=== PATIENT | female | born 1960 | race Caucasian/White ===

== ENCOUNTER 2016-07-04 19:26 | Emergency (ER) | payer BC, OTHER ==
[2016-07-04] MEDS ORDERED: hydrALAZINE INJ 20 MG/ML VIAL As Ordered ONE (20:33)
[2016-07-04 20:48] LABS: BASO # 0.1 K/mm3 (0.0-0.2); BASO % 0.7 % (0.0-1.0); EOS # 0.2 K/mm3 (0.0-0.50); EOS % 2.9 % (0.0-3.0); LARGE UNSTAINED CELL # 0.2 K/mm3 (0.0-0.4); LYMPH # 2.6 K/mm3 (1.5-4.5); LYMPH % 31.2 % (24.0-44.0); MEAN CORPUSCULAR HEMOGLOBIN 30.9 pg (27.0-33.0); MEAN CORPUSCULAR HGB CONC 32.8 g/dl (32.0-36.5); MEAN CORPUSCULAR VOLUME 94.4 fl (80.0-96.0); MONO # 0.4 K/mm3 (0.0-0.8); MONO % 5.3 % (0.0-5.0); NEUTROPHILS # 4.6 K/mm3 (1.8-7.7); NEUTROPHILS % 57.9 % (36.0-66.0); PLATELET COUNT, AUTOMATED 233 k/mm3 (150-450); RED CELL DISTRIBUTION WIDTH 12.7 % (11.5-14.5)
[2016-07-04 21:03] LABS: ANION GAP 9 MEQ/L (8-16); BLOOD UREA NITROGEN 20 MG/DL (7-18); CALCIUM LEVEL 9.9 MG/DL (8.5-10.1); CARBON DIOXIDE LEVEL 26 MEQ/L (21-32); CHLORIDE LEVEL 109 MEQ/L (98-107); CREATININE FOR GFR 1.01 MG/DL (0.55-1.02); GLOMERULAR FILTRATION RATE 59.9 (>51); GLUCOSE, FASTING 126 MG/DL (70-105); POTASSIUM SERUM 4.3 MEQ/L (3.5-5.1); SODIUM LEVEL 144 MEQ/L (136-145)
--- NOTE | 2016-07-04 22:12 | EDDOCDS ---
Physician Documentation [facility] Name: Tammy Hess Age: 56 yrs Sex: Female : 1960 Arrival Date: 07/04/2016 Time: 19:26 Bed 15 Private MD: Timi Disposition: 07/04 21:56 Critical Care: Critical care not applicable. le Disposition: 07/04/16 21:55 Discharged to Home/Self Care. Impression: Elevated blood-pressure reading, without diagnosis of hypertension. - Condition is Stable. - Discharge Instructions: Hypertension, Heart Disease Prevention, How to Take Your Blood Pressure, Erms-gi-Zerl, DASH Eating Plan, Managing Your High Blood Pressure. - Medication Reconciliation, Local Pharmacy Hours form. - Follow up: Timi; When: Call to arrange an appointment; Reason: Recheck today's complaints, Continuance of care. - Problem is new. - Symptoms have improved. - Notes: Return to the ED for worsening blood pressure, especially if you are experiencing any chest pain, shortness of breath, headache, decreased urine output, dizziness, feinting episodes or you have any other concerns Historical: - Allergies: SULFA (SULFONAMIDES); Erythromycin; - Home Meds: 1. none - PMHx: cysts in kidneys; - PSHx: Tonsillectomy; ; Bilateral kidney operations; Rotator Cuff Repair- Right; - Social history: Smoking status: Patient states was never smoker of tobacco. No barriers to communication noted, The patient speaks fluent Pakistani. - Family history: Not pertinent. - : The pt / caregiver states he / she is not on anticoagulants. Home medication list is obtained from the patient. - Exposure Risk Screening:: None identified. Vital Signs: 19:28 BP 228 / 116 RA Sitting (auto/lg); Pulse 84; Resp 16; Temp 97.4(O); Pulse Ox 100% on rs6 R/A; Weight 90.72 kg / 200 lbs (R); Height 5 ft. 5 in. (165.10 cm) (R); Pain 0/10; 19:50 BP 214 / 100 (auto/); mgs 19:52 Pulse 96 MON; mgs 20:02 BP 190 / 100 (man/); mgs 20:20 BP 195 / 95 (auto/); mgs 20:21 Pulse 82 MON; mgs 20:49 BP 178 / 84 (auto/); mgs 20:49 Pulse 82 MON; mgs 21:08 BP 169 / 81 (auto/); mgs 21:09 Pulse 90 MON; mgs 21:23 Pulse 80 MON; mlc 21:23 BP 180 / 87 (auto/); mlc 21:38 Pulse 88 MON; mlc 21:38 BP 188 / 91 (auto/); mlc 21:42 Pulse 92 MON; mlc 21:42 BP 170 / 82 (auto/); mlc 21:53 Pulse 86 MON; mlc 21:53 BP 166 / 84 (auto/); mlc 22:09 BP 164 / 83; Pulse 82; Resp 18; Temp 97.4; Pain 0/10; mlc 19:28 Body Mass Index 33.28 (90.72 kg, 165.10 cm) rs6 MDM: 20:11 IV Saline Lock ordered. le 20:11 hydrALAZINE 10 mg IV at bolus once ordered. le 20:12 Chest, 2 View (pa\E\lat) Ordered. EDMS 20:12 CBC with Diff Ordered. EDMS 20:12 BMP Ordered. EDMS 20:12 UA Ordered. EDMS 20:12 CIP Ordered. EDMS 20:12 Troponin Ordered. EDMS 20:12 ECG WITH READING ER PHYS+CARDIAG ordered. EDMS 20:35 [facility] Payment Agreement was scanned into [employer] and attached to record. jp5 20:35 Financial registration complete. jp5 21:47 CBC with Diff Reviewed. le 21:47 BMP Reviewed. le 21:47 UA Reviewed. le 21:47 CIP Reviewed. le 21:47 Troponin Reviewed. le Administered Medications: 20:47 Drug: hydrALAZINE 10 mg [hydralazine 20 mg/mL injection solution] Route: IV; Rate: mgs bolus; Site: right antecubital; Signatures: Dispatcher MedHost EDMS Kaur Wren FNP FNP le Booth, Mandy, RN RN mlc Smith, Mallory, RN RN ms18 Juice Aviles jp5 Bertrand Aranda RN mgs The chart was reviewed and I authenticate all verbal orders and agree with the evaluation and treatment provided.Attachments: 20:35 [facility] Payment Agreement [facility] MTDD
--- NOTE | 2016-07-04 22:12 | EDDOCDS ---
Nurse's Notes [facility] Name: Tammy Hess Age: 56 yrs Sex: Female : 1960 Arrival Date: 07/04/2016 Time: 19:26 Bed 15 Private MD: Timi Diagnosis: Elevated blood-pressure reading, without diagnosis of hypertension Presentation: 07/04 19:32 Presenting complaint: Patient states: high blood pressure today. Pt denies pain at this ms18 time. Adult Sepsis Screening: The patient does not have new or worsening altered mentation. Patient's respiratory rate is less than 22. Systolic blood pressure is greater than 100. Patient has a qSOFA score of 0- Negative Sepsis Screen. Suicide/Homicide risk assessment- the patient denies having any suicidal and/or homicidal ideations and does not present with any other emotional, behavioral or mental health complaints. Status: Patient is not a insurance service representative or dependent. Transition of care: patient was not received from another setting of care. 19:32 Acuity: MARI Level 3 ms18 19:32 Method Of Arrival: Walkin/Carried/Asstd ms18 Triage Assessment: 19:35 General: Appears in no apparent distress, comfortable, Behavior is appropriate for age, ms18 cooperative. Pain: Denies pain. HIV screening NA for this visit Offered previously. Neurological: Level of Consciousness is awake, alert, obeys commands, Oriented to person, place, time. Cardiovascular: Chest pain is denied. Respiratory: Airway is patent Respiratory effort is even, unlabored. Derm: Skin is pink, warm & dry. Historical: - Allergies: SULFA (SULFONAMIDES); Erythromycin; - Home Meds: 1. none - PMHx: cysts in kidneys; - PSHx: Tonsillectomy; ; Bilateral kidney operations; Rotator Cuff Repair- Right; - Social history: Smoking status: Patient states was never smoker of tobacco. No barriers to communication noted, The patient speaks fluent Kenyan. - Family history: Not pertinent. - : The pt / caregiver states he / she is not on anticoagulants. Home medication list is obtained from the patient. - Exposure Risk Screening:: None identified. Screenin:56 Screening information is obtained from the patient. Fall risk: No risks identified. mgs Assistance ADL's: requires no assistance with activities of daily living. Abuse/DV Screen: The patient / caregiver reports he/she is: not in a situation that causes fear, pain or injury. Nutritional screening: No deficits noted. Advance Directives: Currently, there is no health care proxy. There is no active DNR order. home support is adequate. Assessment: 19:54 Adult Sepsis Screening: The patient does not have new or worsening altered mentation. mgs Patient's respiratory rate is less than 22. Systolic blood pressure is greater than 100. Patient has a qSOFA score of 0- Negative Sepsis Screen. General: Appears in no apparent distress, Behavior is appropriate for age, cooperative. Pain: Denies pain. Neurological: Level of Consciousness is awake, alert, Oriented to person, place, time. Cardiovascular: Capillary refill < 3 seconds Heart tones S1 S2 present Pulses are 2+ in right radial artery and left radial artery. Respiratory: Airway is patent Respiratory effort is even, unlabored, Respiratory pattern is regular, symmetrical, Breath sounds are clear bilaterally. Derm: Skin is pink, warm & dry. 21:16 General: Appears in no apparent distress, Behavior is appropriate for age, cooperative. mgs Pain: Denies pain. Neurological: Level of Consciousness is awake, alert, Oriented to person, place, time. Cardiovascular: Capillary refill < 3 seconds Heart tones S1 S2 present. Respiratory: Airway is patent Respiratory effort is even, unlabored, Respiratory pattern is regular, symmetrical. Derm: Skin is pink, warm & dry. 22:09 General: Appears in no apparent distress, comfortable, Behavior is cooperative. Pain: mlc Denies pain. Neurological: Level of Consciousness is awake, alert, Oriented to person, place, time. Respiratory: Airway is patent Respiratory effort is even, unlabored, Respiratory pattern is regular. Derm: Skin is pink, warm & dry. Vital Signs: 19:28 BP 228 / 116 RA Sitting (auto/lg); Pulse 84; Resp 16; Temp 97.4(O); Pulse Ox 100% on rs6 R/A; Weight 90.72 kg (R); Height 5 ft. 5 in. (165.10 cm) (R); Pain 0/10; 19:50 BP 214 / 100 (auto/); mgs 19:52 Pulse 96 MON; mgs 20:02 BP 190 / 100 (man/); mgs 20:20 BP 195 / 95 (auto/); mgs 20:21 Pulse 82 MON; mgs 20:49 BP 178 / 84 (auto/); mgs 20:49 Pulse 82 MON; mgs 21:08 BP 169 / 81 (auto/); mgs 21:09 Pulse 90 MON; mgs 21:23 Pulse 80 MON; mlc 21:23 BP 180 / 87 (auto/); mlc 21:38 Pulse 88 MON; mlc 21:38 BP 188 / 91 (auto/); mlc 21:42 Pulse 92 MON; mlc 21:42 BP 170 / 82 (auto/); mlc 21:53 Pulse 86 MON; mlc 21:53 BP 166 / 84 (auto/); mlc 22:09 BP 164 / 83; Pulse 82; Resp 18; Temp 97.4; Pain 0/10; mlc 19:28 Body Mass Index 33.28 (90.72 kg, 165.10 cm) [facility] Vitals: 19:28 Log In Time: July 04, 2016 at 19:28. rs6 19:29 RN notified that patient meets Red Flag criteria. rs6 ED Course: 19:27 Patient visited by Yaneli Gonzalez PCA. rs6 19:27 Timi is Private Physician. rs6 19:27 Patient moved to Waiting rs6 19:28 Patient visited by Yaneli Gonzalez PCA. rs6 19:29 Patient moved to Pre RCE rs6 19:33 Triage Initiated ms18 19:35 Sinai Pack,RN is Primary Nurse. ttb 19:35 Patient moved to 15 ttb 19:41 [facility] le 19:55 Patient visited by Kaur Wren FNP. le 19:55 Patient visited by Kaur Wren FNP. le 19:58 Patient visited by Bertrand Aranda,ELIN. mgs 20:23 EKG done. (by ED staff). Reviewed by Kaur SANCHEZ. cln 20:24 Patient visited by Funmi Lopez PCA. cln 20:31 Inserted saline lock: 20 gauge in right antecubital area and blood collected. The [facility] patient tolerated the procedure well. 20:31 Missed attempts: 20 gauge X 1 in left antecubital area. mgs 20:31 Troponin Sent. mgs 20:31 CIP Sent. mgs 20:31 BMP Sent. mgs 20:31 CBC with Diff Sent. mgs 20:35 [facility] Payment Agreement was scanned into [employer] and attached to record. jp5 20:55 Patient name changed from Tammy\S\K\S\Deshawn\S\ to Tammy\S\Lata\S\Normal. EDMS 21:17 Patient visited by Bertrand Aranda RN. mgs 21:21 UA Sent. mgs 21:55 Timi is Referral Physician. le 22:09 The patient / caregiver is instructed regarding the plan of care and ED course. mlc 22:09 Discontinued IV lock intact, bleeding controlled, pressure dressing applied, No mlc redness/swelling at site. 22:10 No procedures done that require assistance. mlc Administered Medications: 20:47 Drug: hydrALAZINE 10 mg [hydralazine 20 mg/mL injection solution] Route: IV; Rate: mgs bolus; Site: right antecubital; Order Results: Lab Order: CBC with Diff; SPEC'M 07/04/16 20:28 Test: WHITE BLOOD COUNT; Value: 8.0; Range: 4.0-10.0; Units: K/mm3; Status: F Test: RED BLOOD COUNT; Value: 4.04; Range: 4.00-5.40; Units: M/mm3; Status: F Test: HEMOGLOBIN; Value: 12.5; Range: 12.0-16.0; Units: g/dl; Status: F Test: HEMATOCRIT; Value: 38.1; Range: 36.0-47.0; Units: %; Status: F Test: MEAN CORPUSCULAR VOLUME; Value: 94.4; Range: 80.0-96.0; Units: fl; Status: F Test: MEAN CORPUSCULAR HEMOGLOBIN; Value: 30.9; Range: 27.0-33.0; Units: pg; Status: F Test: MEAN CORPUSCULAR HGB CONC; Value: 32.8; Range: 32.0-36.5; Units: g/dl; Status: F Test: RED CELL DISTRIBUTION WIDTH; Value: 12.7; Range: 11.5-14.5; Units: %; Status: F Test: PLATELET COUNT, AUTOMATED; Value: 233; Range: 150-450; Units: k/mm3; Status: F Test: NEUTROPHILS %; Value: 57.9; Range: 36.0-66.0; Units: %; Status: F Test: LYMPH %; Value: 31.2; Range: 24.0-44.0; Units: %; Status: F Test: MONO %; Value: 5.3; Range: 0.0-5.0; Abnormal: Above high normal; Units: %; Status: F Test: EOS %; Value: 2.9; Range: 0.0-3.0; Units: %; Status: F Test: BASO %; Value: 0.7; Range: 0.0-1.0; Units: %; Status: F Test: LARGE UNSTAINED CELL %; Value: 2.0; Range: 0.0-4.0; Units: %; Status: F Test: NEUTROPHILS #; Value: 4.6; Range: 1.8-7.7; Units: K/mm3; Status: F Test: LYMPH #; Value: 2.6; Range: 1.5-4.5; Units: K/mm3; Status: F Test: MONO #; Value: 0.4; Range: 0.0-0.8; Units: K/mm3; Status: F Test: EOS #; Value: 0.2; Range: 0.0-0.50; Units: K/mm3; Status: F Test: BASO #; Value: 0.1; Range: 0.0-0.2; Units: K/mm3; Status: F Test: LARGE UNSTAINED CELL #; Value: 0.2; Range: 0.0-0.4; Units: K/mm3; Status: F Lab Order: [facility]; SPEC'M 07/04/16 20:28 Test: GLUCOSE, FASTING; Value: 126; Range: 70-105; Abnormal: Above high normal; Units: MG/DL; Status: F Test: BLOOD UREA NITROGEN; Value: 20; Range: 7-18; Abnormal: Above high normal; Units: MG/DL; Status: F Test: CREATININE FOR GFR; Value: 1.01; Range: 0.55-1.02; Units: MG/DL; Status: F Test: GLOMERULAR FILTRATION RATE; Value: 59.9; Range: >51; Status: F Test: SODIUM LEVEL; Value: 144; Range: 136-145; Units: MEQ/L; Status: F Test: POTASSIUM SERUM; Value: 4.3; Range: 3.5-5.1; Units: MEQ/L; Status: F Test: CHLORIDE LEVEL; Value: 109; Range: 98-107; Abnormal: Above high normal; Units: MEQ/L; Status: F Test: CARBON DIOXIDE LEVEL; Value: 26; Range: 21-32; Units: MEQ/L; Status: F Test: ANION GAP; Value: 9; Range: 8-16; Units: MEQ/L; Status: F Test: CALCIUM LEVEL; Value: 9.9; Range: 8.5-10.1; Units: MG/DL; Status: F Test Note: ; Units are mL/min/1.73 m2 Chronic Kidney Disease Staging per NKF: Stage I & II GFR >=60 Normal to Mildly Decreased Stage III GFR 30-59 Moderately Decreased Stage IV GFR 15-29 Severely Decreased Stage V GFR <15 Very Little GFR Left ESRD GFR <15 on GOLF COURSE ASSISTANT Lab Order: UA; SPEC'M 07/04/16 21:20 Test: APPEARANCE, URINE; Value: CLEAR; Range: CLEAR; Status: F Test: COLOR, URINE; Value: STRAW; Range: YELLOW; Status: F Test: PH,URINE; Value: 6.0; Range: 5.0-9.0; Units: UNITS; Status: F Test: SPECIFIC GRAVITY URINE AUTO; Value: 1.004; Range: 1.002-1.035; Status: F Test: PROTEIN, URINE AUTO; Value: NEGATIVE; Range: NEGATIVE; Units: mg/dL; Status: F Test: GLUCOSE, URINE (UA) AUTO; Value: NEGATIVE; Range: NEGATIVE; Units: mg/dL; Status: F Test: KETONE, URINE AUTO; Value: NEGATIVE; Range: NEGATIVE; Units: mg/dL; Status: F Test: UROBILINOGEN, URINE AUTO; Value: 0.2; Range: 0.0-2.0; Units: mg/dL; Status: F Test: BILIRUBIN, URINE AUTO; Value: NEGATIVE; Range: NEGATIVE; Status: F Test: NITRITE, URINE AUTO; Value: NEGATIVE; Range: NEGATIVE; Status: F Test: LEUKOCYTE ESTERASE, URINE AUTO; Value: 1+; Range: NEGATIVE; Abnormal: Above high normal; Status: F Test: BLOOD, URINE BLOOD; Value: NEGATIVE; Range: NEGATIVE; Status: F Test: WBC, URINE AUTO; Value: 8; Range: 0-3; Abnormal: Above high normal; Units: /HPF; Status: F Test: RBC, URINE AUTO; Value: 1; Range: 0-3; Units: /HPF; Status: F Test: BACTERIA, URINE AUTO; Value: 2+; Range: NEGATIVE; Abnormal: Above high normal; Status: F Test: SQUAMOUS EPITHELIAL CELL UR AU; Value: 0; Range: 0-6; Units: /HPF; Status: F Test: MUCUS, URINE; Value: SMALL; Range: NEGATIVE; Status: F Test: HYALINE CAST, URINE AUTO; Value: 0; Range: 0-1; Units: /LPF; Status: F Lab Order: CIP; [facility] 07/04/16 20:28 Test: CPK CREATINE PHOSPHOKINASE; Value: 80; Range: 26-192; Units: U/L; Status: F Test: CK-MB VALUE MASS; Value: 1.4; Range: 0.0-3.6; Units: NG/ML; Status: F Test: MB/CK RELATIVE INDEX; Value: 1.75; Range: < OR =4; Status: F Test Note: ; DIAGNOSIS CRITERIA MMB ng/ml Relative Index (RI) NON-AMI < or = 5 N/A STEPHEN ZONE > 5 < or = 4 AMI > 5 > 4 Lab Order: Troponin; [facility] 07/04/16 20:28 Test: TROPONIN I; Value: < 0.02; Range: < 0.10; Units: NG/ML; Status: F Test Note: ; Troponin I Reference Interval for Ingeniatrics LOCI: 99th Percentile= 0.00-0.045 ng/ml Risk Stratification: <= 0.10 ng/ml Decreased Risk for Adverse Clinical Events. 0.10-1.50 ng/ml Increased Risk for Adverse Clinical Events. Evaluation of additional criterion and/or repeat testing in 2-6 hours is suggested to rule out myocardial damage. >= 1.50 ng/ml Indicative of Myocardial Injury. Outcome: 21:55 Discharge ordered by Provider. le 22:09 Discharge Assessment: Patient awake, alert and oriented x 3. No cognitive and/or mlc functional deficits noted. Patient verbalized understanding of disposition instructions. patient administered narcotics - no. The following High Risk Discharge criteria are identified: None. Discharged to home ambulatory, with family. Condition: stable Condition: improved. Discharge instructions given to patient, Instructed on discharge instructions, follow up and referral plans. Demonstrated understanding of instructions, Pt was receptive of discharge instructions/ teaching. No special radiology studies were completed. Property sent home with patient. 22:11 Patient left the ED. [facility] Signatures: Dispatcher MedHost EDTX Kaur Wren FNP FNP le Conner, Teresa, RN RN ttb Lisbeth Carmen RN RN Cait Henderson RN RN ms18 Bertrand Aranda,RN RN mgs Yaneli Gonzalez, APPLICATION CONSULTANT APPLICATION CONSULTANT rs6 Juice Aviles jp5 Funmi Lopez, APPLICATION CONSULTANT APPLICATION CONSULTANT cln TACO
--- NOTE | 2016-07-05 08:19 | REP ---
Chest x-ray: Two views. History: Hypertension . Comparison study: August 31, 2015 . Findings: The lungs are well inflated and free of infiltrate. There is a tiny linear density in the left base consistent with mild linear fibrosis unchanged. The pleural angles are sharp. The heart size is normal. Pulmonary vasculature is not increased. No significant bony abnormality is seen. Impression: Mild linear fibrosis left base, otherwise negative chest x-ray. Signed by Felix Urbano MD 07/05/2016 08:10 A
--- NOTE | 2016-07-05 09:01 | ECGEPIP ---
Stationary ECG Study [facility] - ED Test Date: 2016-07-04 Pat Name: AGUSTINA WU Department: Room: - Gender: F [employer] Person: lissette : 1960 Requested By: RENA SANCHEZ Order Number: [id number] Reading MD: Maci Puente Measurements Intervals Gates Rate: 90 P: 42 AR: 178 QRS: 20 QRSD: 87 T: 12 QT: 382 QTc: 469 Interpretive Statements SINUS RHYTHM LEFT VENTRICULAR HYPERTROPHY AND ST-T CHANGE VS ISCHEMIA, INCREASED 08/31/15 Electronically Signed On 07-05-2016 9:01:29 EST by Maci Puente
--- NOTE | 2016-07-06 23:12 | EDDOCDS ---
Nurse's Notes [facility] Name: Agustina Hess Age: 56 yrs Sex: Female : 1960 Arrival Date: 07/04/2016 Time: 19:26 Bed 15 Private MD: Timi Diagnosis: Elevated blood-pressure reading, without diagnosis of hypertension Presentation: 07/04 19:32 Presenting complaint: Patient states: high blood pressure today. Pt denies pain at this ms18 time. Adult Sepsis Screening: The patient does not have new or worsening altered mentation. Patient's respiratory rate is less than 22. Systolic blood pressure is greater than 100. Patient has a qSOFA score of 0- Negative Sepsis Screen. Suicide/Homicide risk assessment- the patient denies having any suicidal and/or homicidal ideations and does not present with any other emotional, behavioral or mental health complaints. Status: Patient is not a social and human services assistant or dependent. Transition of care: patient was not received from another setting of care. 19:32 Acuity: MARI Level 3 ms18 19:32 Method Of Arrival: Walkin/Carried/Asstd ms18 Triage Assessment: 19:35 General: Appears in no apparent distress, comfortable, Behavior is appropriate for age, ms18 cooperative. Pain: Denies pain. HIV screening NA for this visit Offered previously. Neurological: Level of Consciousness is awake, alert, obeys commands, Oriented to person, place, time. Cardiovascular: Chest pain is denied. Respiratory: Airway is patent Respiratory effort is even, unlabored. Derm: Skin is pink, warm & dry. Historical: - Allergies: SULFA (SULFONAMIDES); Erythromycin; - Home Meds: 1. none - PMHx: cysts in kidneys; - PSHx: Tonsillectomy; ; Bilateral kidney operations; Rotator Cuff Repair- Right; - Social history: Smoking status: Patient states was never smoker of tobacco. No barriers to communication noted, The patient speaks fluent Tanzanian. - Family history: Not pertinent. - : The pt / caregiver states he / she is not on anticoagulants. Home medication list is obtained from the patient. - Exposure Risk Screening:: None identified. Screenin:56 Screening information is obtained from the patient. Fall risk: No risks identified. mgs Assistance ADL's: requires no assistance with activities of daily living. Abuse/DV Screen: The patient / caregiver reports he/she is: not in a situation that causes fear, pain or injury. Nutritional screening: No deficits noted. Advance Directives: Currently, there is no health care proxy. There is no active DNR order. home support is adequate. Assessment: 19:54 Adult Sepsis Screening: The patient does not have new or worsening altered mentation. mgs Patient's respiratory rate is less than 22. Systolic blood pressure is greater than 100. Patient has a qSOFA score of 0- Negative Sepsis Screen. General: Appears in no apparent distress, Behavior is appropriate for age, cooperative. Pain: Denies pain. Neurological: Level of Consciousness is awake, alert, Oriented to person, place, time. Cardiovascular: Capillary refill < 3 seconds Heart tones S1 S2 present Pulses are 2+ in right radial artery and left radial artery. Respiratory: Airway is patent Respiratory effort is even, unlabored, Respiratory pattern is regular, symmetrical, Breath sounds are clear bilaterally. Derm: Skin is pink, warm & dry. 21:16 General: Appears in no apparent distress, Behavior is appropriate for age, cooperative. mgs Pain: Denies pain. Neurological: Level of Consciousness is awake, alert, Oriented to person, place, time. Cardiovascular: Capillary refill < 3 seconds Heart tones S1 S2 present. Respiratory: Airway is patent Respiratory effort is even, unlabored, Respiratory pattern is regular, symmetrical. Derm: Skin is pink, warm & dry. 22:09 General: Appears in no apparent distress, comfortable, Behavior is cooperative. Pain: mlc Denies pain. Neurological: Level of Consciousness is awake, alert, Oriented to person, place, time. Respiratory: Airway is patent Respiratory effort is even, unlabored, Respiratory pattern is regular. Derm: Skin is pink, warm & dry. Vital Signs: 19:28 BP 228 / 116 RA Sitting (auto/lg); Pulse 84; Resp 16; Temp 97.4(O); Pulse Ox 100% on rs6 R/A; Weight 90.72 kg (R); Height 5 ft. 5 in. (165.10 cm) (R); Pain 0/10; 19:50 BP 214 / 100 (auto/); mgs 19:52 Pulse 96 MON; mgs 20:02 BP 190 / 100 (man/); mgs 20:20 BP 195 / 95 (auto/); mgs 20:21 Pulse 82 MON; mgs 20:49 BP 178 / 84 (auto/); mgs 20:49 Pulse 82 MON; mgs 21:08 BP 169 / 81 (auto/); mgs 21:09 Pulse 90 MON; mgs 21:23 Pulse 80 MON; mlc 21:23 BP 180 / 87 (auto/); mlc 21:38 Pulse 88 MON; mlc 21:38 BP 188 / 91 (auto/); mlc 21:42 Pulse 92 MON; mlc 21:42 BP 170 / 82 (auto/); mlc 21:53 Pulse 86 MON; mlc 21:53 BP 166 / 84 (auto/); mlc 22:09 BP 164 / 83; Pulse 82; Resp 18; Temp 97.4; Pain 0/10; mlc 19:28 Body Mass Index 33.28 (90.72 kg, 165.10 cm) [facility] Vitals: 19:28 Log In Time: July 04, 2016 at 19:28. rs6 19:29 RN notified that patient meets Red Flag criteria. rs6 ED Course: 19:27 Patient visited by Yaneli Gonzalez PCA. rs6 19:27 Timi is Private Physician. rs6 19:27 Patient moved to Waiting rs6 19:28 Patient visited by Yaneli Gonzalez PCA. rs6 19:29 Patient moved to Pre RCE rs6 19:33 Triage Initiated ms18 19:35 Sinai Pack,RN is Primary Nurse. ttb 19:35 Patient moved to 15 ttb 19:41 [facility] le 19:55 Patient visited by Kaur Wren FNP. le 19:55 Patient visited by Kaur Wren FNP. le 19:58 Patient visited by Bertrand Aradna,ELIN. mgs 20:23 EKG done. (by ED staff). Reviewed by Kaur SANCHEZ. cln 20:24 Patient visited by Funmi Lopez PCA. cln 20:31 Inserted saline lock: 20 gauge in right antecubital area and blood collected. [facility] [place] tolerated the procedure well. 20:31 Missed attempts: 20 gauge X 1 in left antecubital area. mgs 20:31 Troponin Sent. mgs 20:31 CIP Sent. mgs 20:31 BMP Sent. mgs 20:31 CBC with Diff Sent. mgs 20:35 [facility] was scanned into [employer] and attached to record. jp5 20:55 Patient name changed from Agustina\S\K\S\Deshawn\S\ to Agustina\S\Lata\S\[place]. EDMS 21:17 Patient visited by Bertrand Aranda RN. mgs 21:21 UA Sent. mgs 21:55 Timi is Referral Physician. le 22:09 The patient / caregiver is instructed regarding the plan of care and ED course. mlc 22:09 Discontinued IV lock intact, bleeding controlled, pressure dressing applied, No mlc redness/swelling at site. 22:10 No procedures done that require assistance. mlc 22:24 T-Sheet-- Draft Copy was scanned into [employer] and attached to record. klr 07/05 08:49 Chest, 2 View (pa\E\lat) Returned. EDMS 09:23 EKG-ADULT Returned. EDMS 15:26 ECG/EKG was scanned into [employer] and attached to record. kf3 Administered Medications: 07/04 20:47 Drug: hydrALAZINE 10 mg [hydralazine 20 mg/mL injection solution] Route: IV; Rate: mgs bolus; Site: right antecubital; Order Results: Lab Order: CBC with Diff; SPEC'M 07/04/16 20:28 Test: WHITE BLOOD COUNT; Value: 8.0; Range: 4.0-10.0; Units: K/mm3; Status: F Test: RED BLOOD COUNT; Value: 4.04; Range: 4.00-5.40; Units: M/mm3; Status: F Test: HEMOGLOBIN; Value: 12.5; Range: 12.0-16.0; Units: g/dl; Status: F Test: HEMATOCRIT; Value: 38.1; Range: 36.0-47.0; Units: %; Status: F Test: MEAN CORPUSCULAR VOLUME; Value: 94.4; Range: 80.0-96.0; Units: fl; Status: F Test: MEAN CORPUSCULAR HEMOGLOBIN; Value: 30.9; Range: 27.0-33.0; Units: pg; Status: F Test: MEAN CORPUSCULAR HGB CONC; Value: 32.8; Range: 32.0-36.5; Units: g/dl; Status: F Test: RED CELL DISTRIBUTION WIDTH; Value: 12.7; Range: 11.5-14.5; Units: %; Status: F Test: PLATELET COUNT, AUTOMATED; Value: 233; Range: 150-450; Units: k/mm3; Status: F Test: NEUTROPHILS %; Value: 57.9; Range: 36.0-66.0; Units: %; Status: F Test: LYMPH %; Value: 31.2; Range: 24.0-44.0; Units: %; Status: F Test: MONO %; Value: 5.3; Range: 0.0-5.0; Abnormal: Above high normal; Units: %; Status: F Test: EOS %; Value: 2.9; Range: 0.0-3.0; Units: %; Status: F Test: BASO %; Value: 0.7; Range: 0.0-1.0; Units: %; Status: F Test: LARGE UNSTAINED CELL %; Value: 2.0; Range: 0.0-4.0; Units: %; Status: F Test: NEUTROPHILS #; Value: 4.6; Range: 1.8-7.7; Units: K/mm3; Status: F Test: LYMPH #; Value: 2.6; Range: 1.5-4.5; Units: K/mm3; Status: F Test: MONO #; Value: 0.4; Range: 0.0-0.8; Units: K/mm3; Status: F Test: EOS #; Value: 0.2; Range: 0.0-0.50; Units: K/mm3; Status: F Test: BASO #; Value: 0.1; Range: 0.0-0.2; Units: K/mm3; Status: F Test: LARGE UNSTAINED CELL #; Value: 0.2; Range: 0.0-0.4; Units: K/mm3; Status: F Lab Order: [facility]; SPEC'M 07/04/16 20:28 Test: GLUCOSE, FASTING; Value: 126; Range: 70-105; Abnormal: Above high normal; Units: MG/DL; Status: F Test: BLOOD UREA NITROGEN; Value: 20; Range: 7-18; Abnormal: Above high normal; Units: MG/DL; Status: F Test: CREATININE FOR GFR; Value: 1.01; Range: 0.55-1.02; Units: MG/DL; Status: F Test: GLOMERULAR FILTRATION RATE; Value: 59.9; Range: >51; Status: F Test: SODIUM LEVEL; Value: 144; Range: 136-145; Units: MEQ/L; Status: F Test: POTASSIUM SERUM; Value: 4.3; Range: 3.5-5.1; Units: MEQ/L; Status: F Test: CHLORIDE LEVEL; Value: 109; Range: 98-107; Abnormal: Above high normal; Units: MEQ/L; Status: F Test: CARBON DIOXIDE LEVEL; Value: 26; Range: 21-32; Units: MEQ/L; Status: F Test: ANION GAP; Value: 9; Range: 8-16; Units: MEQ/L; Status: F Test: CALCIUM LEVEL; Value: 9.9; Range: 8.5-10.1; Units: MG/DL; Status: F Test Note: ; Units are mL/min/1.73 m2 Chronic Kidney Disease Staging per NKF: Stage I & II GFR >=60 Normal to Mildly Decreased Stage III GFR 30-59 Moderately Decreased Stage IV GFR 15-29 Severely Decreased Stage V GFR <15 Very Little GFR Left ESRD GFR <15 on DAIRY WORKER Lab Order: UA; SPEC'M 07/04/16 21:20 Test: APPEARANCE, URINE; Value: CLEAR; Range: CLEAR; Status: F Test: COLOR, URINE; Value: STRAW; Range: YELLOW; Status: F Test: PH,URINE; Value: 6.0; Range: 5.0-9.0; Units: UNITS; Status: F Test: SPECIFIC GRAVITY URINE AUTO; Value: 1.004; Range: 1.002-1.035; Status: F Test: PROTEIN, URINE AUTO; Value: NEGATIVE; Range: NEGATIVE; Units: mg/dL; Status: F Test: GLUCOSE, URINE (UA) AUTO; Value: NEGATIVE; Range: NEGATIVE; Units: mg/dL; Status: F Test: KETONE, URINE AUTO; Value: NEGATIVE; Range: NEGATIVE; Units: mg/dL; Status: F Test: UROBILINOGEN, URINE AUTO; Value: 0.2; Range: 0.0-2.0; Units: mg/dL; Status: F Test: BILIRUBIN, URINE AUTO; Value: NEGATIVE; Range: NEGATIVE; Status: F Test: NITRITE, URINE AUTO; Value: NEGATIVE; Range: NEGATIVE; Status: F Test: LEUKOCYTE ESTERASE, URINE AUTO; Value: 1+; Range: NEGATIVE; Abnormal: Above high normal; Status: F Test: BLOOD, URINE BLOOD; Value: NEGATIVE; Range: NEGATIVE; Status: F Test: WBC, URINE AUTO; Value: 8; Range: 0-3; Abnormal: Above high normal; Units: /HPF; Status: F Test: RBC, URINE AUTO; Value: 1; Range: 0-3; Units: /HPF; Status: F Test: BACTERIA, URINE AUTO; Value: 2+; Range: NEGATIVE; Abnormal: Above high normal; Status: F Test: SQUAMOUS EPITHELIAL CELL UR AU; Value: 0; Range: 0-6; Units: /HPF; Status: F Test: MUCUS, URINE; Value: SMALL; Range: NEGATIVE; Status: F Test: HYALINE CAST, URINE AUTO; Value: 0; Range: 0-1; Units: /LPF; Status: F Lab Order: CIP; SPEC'M 07/04/16 20:28 Test: CPK CREATINE PHOSPHOKINASE; Value: 80; Range: 26-192; Units: U/L; Status: F Test: CK-MB VALUE MASS; Value: 1.4; Range: 0.0-3.6; Units: NG/ML; Status: F Test: MB/CK RELATIVE INDEX; Value: 1.75; Range: < OR =4; Status: F Test Note: ; DIAGNOSIS CRITERIA MMB ng/ml Relative Index (RI) NON-AMI < or = 5 N/A STEPHEN ZONE > 5 < or = 4 AMI > 5 > 4 Lab Order: Troponin; SPEC'M 07/04/16 20:28 Test: TROPONIN I; Value: < 0.02; Range: < 0.10; Units: NG/ML; Status: F Test Note: ; Troponin I Reference Interval for [employer] LOCI: 99th Percentile= 0.00-0.045 ng/ml Risk Stratification: <= 0.10 ng/ml Decreased Risk for Adverse Clinical Events. 0.10-1.50 ng/ml Increased Risk for Adverse Clinical Events. Evaluation of additional criterion and/or repeat testing in 2-6 hours is suggested to rule out myocardial damage. >= 1.50 ng/ml Indicative of Myocardial Injury. Radiology Order: Chest, 2 View (pa\E\lat) Test: Chest, 2 View (pa\E\lat) REASON FOR EXAMINATION: hypertension; Chest x-ray: Two views.; ; History: Hypertension .; ; Comparison study: August 31, 2015 .; ; Findings: The lungs are well inflated and free of infiltrate. There is a tiny; linear density in the left base consistent with mild linear fibrosis unchanged.; The pleural angles are sharp. The heart size is normal. Pulmonary vasculature; is not increased. 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 le 22:09 Discharge Assessment: Patient awake, alert and oriented x 3. No cognitive and/or mlc functional deficits noted. Patient verbalized understanding of disposition instructions. patient administered narcotics - no. The following High Risk Discharge criteria are identified: None. Discharged to home ambulatory, with family. Condition: stable Condition: improved. Discharge instructions given to patient, Instructed on discharge instructions, follow up and referral plans. Demonstrated understanding of instructions, Pt was receptive of discharge instructions/ teaching. No special radiology studies were completed. Property sent home with patient. 22:11 Patient left the ED. mlc Signatures: Dispatcher [employer] EDMS Kaur Wren, LAURA MEDICAL OFFICE MANAGERKain Ingram, Reg Reg kf3 Perla Michaud, RN RN ttb Lisbeth Carmen,RN RN Cait Henderson RN RN ms18 Bertrand ArandaRN RN Yaneli Rodriguez, SECURITY INFRASTRUCTURE ENGINEER SECURITY INFRASTRUCTURE ENGINEER rs6 Juice Aviles jp5 Funmi Lopez, SECURITY INFRASTRUCTURE ENGINEER SECURITY INFRASTRUCTURE ENGINEER cln Michelle Hollis Chart Complete MTDD
--- NOTE | 2016-07-06 23:12 | EDDOCDS ---
Physician Documentation [facility] Name: Tammy Hess Age: 56 yrs Sex: Female : 1960 Arrival Date: 07/04/2016 Time: 19:26 Bed 15 Private MD: Timi Disposition: 07/04 21:56 Critical Care: Critical care not applicable. le Disposition: 07/04/16 21:55 Discharged to Home/Self Care. Impression: Elevated blood-pressure reading, without diagnosis of hypertension. - Condition is Stable. - Discharge Instructions: Hypertension, Heart Disease Prevention, How to Take Your Blood Pressure, [id number], DASH Eating Plan, Managing Your High Blood Pressure. - Medication Reconciliation, Local Pharmacy Hours form. - Follow up: Timi; When: Call to arrange an appointment; Reason: Recheck today's complaints, Continuance of care. - Problem is new. - Symptoms have improved. - Notes: Return to the ED for worsening blood pressure, especially if you are experiencing any chest pain, shortness of breath, headache, decreased urine output, dizziness, feinting episodes or you have any other concerns Historical: - Allergies: SULFA (SULFONAMIDES); Erythromycin; - Home Meds: 1. none - PMHx: cysts in kidneys; - PSHx: Tonsillectomy; ; Bilateral kidney operations; Rotator Cuff Repair- Right; - Social history: Smoking status: Patient states was never smoker of tobacco. No barriers to communication noted, The patient speaks fluent Ghanaian. - Family history: Not pertinent. - : The pt / caregiver states he / she is not on anticoagulants. Home medication list is obtained from the patient. - Exposure Risk Screening:: None identified. Vital Signs: 19:28 BP 228 / 116 RA Sitting (auto/lg); Pulse 84; Resp 16; Temp 97.4(O); Pulse Ox 100% on rs6 R/A; Weight 90.72 kg / 200 lbs (R); Height 5 ft. 5 in. (165.10 cm) (R); Pain 0/10; 19:50 BP 214 / 100 (auto/); mgs 19:52 Pulse 96 MON; mgs 20:02 BP 190 / 100 (man/); mgs 20:20 BP 195 / 95 (auto/); mgs 20:21 Pulse 82 MON; mgs 20:49 BP 178 / 84 (auto/); mgs 20:49 Pulse 82 MON; mgs 21:08 BP 169 / 81 (auto/); mgs 21:09 Pulse 90 MON; mgs 21:23 Pulse 80 MON; mlc 21:23 BP 180 / 87 (auto/); mlc 21:38 Pulse 88 MON; mlc 21:38 BP 188 / 91 (auto/); mlc 21:42 Pulse 92 MON; mlc 21:42 BP 170 / 82 (auto/); mlc 21:53 Pulse 86 MON; mlc 21:53 BP 166 / 84 (auto/); mlc 22:09 BP 164 / 83; Pulse 82; Resp 18; Temp 97.4; Pain 0/10; mlc 19:28 Body Mass Index 33.28 (90.72 kg, 165.10 cm) rs6 MDM: 20:11 IV Saline Lock ordered. le 20:11 hydrALAZINE 10 mg IV at bolus once ordered. le 20:12 Chest, 2 View (pa\E\lat) Ordered. EDMS 20:12 CBC with Diff Ordered. EDMS 20:12 BMP Ordered. EDMS 20:12 UA Ordered. EDMS 20:12 CIP Ordered. EDMS 20:12 Troponin Ordered. EDMS 20:12 ECG WITH READING ER PHYS+CARDIAG ordered. EDMS 20:35 [facility] Payment Agreement was scanned into [employer] and attached to record. jp5 20:35 Financial registration complete. jp5 21:47 CBC with Diff Reviewed. le 21:47 BMP Reviewed. le 21:47 UA Reviewed. le 21:47 CIP Reviewed. le 21:47 Troponin Reviewed. le 22:24 T-Sheet-- Draft Copy was scanned into [employer] and attached to record. klr 07/05 15:26 ECG/EKG was scanned into [employer] and attached to record. kf3 Administered Medications: 07/04 20:47 Drug: hydrALAZINE 10 mg [hydralazine 20 mg/mL injection solution] Route: IV; Rate: mgs bolus; Site: right antecubital; Signatures: Dispatcher [employer] EDMS Kaur Wren, DIRECTOR OF STATE DIRECTOR OF STATE le Kain Lopez, Reg Reg kf3 Lisbeth Carmen RN RN Cait Henderson RN RN ms18 Juice Aviles jp5 Michelle Hollis Matthew RN mgs The chart was reviewed and I authenticate all verbal orders and agree with the evaluation and treatment provided.Attachments: 20:35 [facility] Payment Agreement jp5 22:24 T-Sheet-- Draft Copy klr 07/05 15:26 ECG/EKG kf3 Chart Complete MTDD
--- NOTE | 2016-07-06 23:12 | EDDOCDS ---
Physician Documentation [facility] Name: Tammy Hess Age: 56 yrs Sex: Female : 1960 Arrival Date: 07/04/2016 Time: 19:26 Bed 15 Private MD: Timi Disposition: 07/04 21:56 Critical Care: Critical care not applicable. le Disposition: 07/04/16 21:55 Discharged to Home/Self Care. Impression: Elevated blood-pressure reading, without diagnosis of hypertension. - Condition is Stable. - Discharge Instructions: Hypertension, Heart Disease Prevention, How to Take Your Blood Pressure, [id number], DASH Eating Plan, Managing Your High Blood Pressure. - Medication Reconciliation, Local Pharmacy Hours form. - Follow up: Timi; When: Call to arrange an appointment; Reason: Recheck today's complaints, Continuance of care. - Problem is new. - Symptoms have improved. - Notes: Return to the ED for worsening blood pressure, especially if you are experiencing any chest pain, shortness of breath, headache, decreased urine output, dizziness, feinting episodes or you have any other concerns Historical: - Allergies: SULFA (SULFONAMIDES); Erythromycin; - Home Meds: 1. none - PMHx: cysts in kidneys; - PSHx: Tonsillectomy; ; Bilateral kidney operations; Rotator Cuff Repair- Right; - Social history: Smoking status: Patient states was never smoker of tobacco. No barriers to communication noted, The patient speaks fluent Anguillan. - Family history: Not pertinent. - : The pt / caregiver states he / she is not on anticoagulants. Home medication list is obtained from the patient. - Exposure Risk Screening:: None identified. Vital Signs: 19:28 BP 228 / 116 RA Sitting (auto/lg); Pulse 84; Resp 16; Temp 97.4(O); Pulse Ox 100% on rs6 R/A; Weight 90.72 kg / 200 lbs (R); Height 5 ft. 5 in. (165.10 cm) (R); Pain 0/10; 19:50 BP 214 / 100 (auto/); mgs 19:52 Pulse 96 MON; mgs 20:02 BP 190 / 100 (man/); mgs 20:20 BP 195 / 95 (auto/); mgs 20:21 Pulse 82 MON; mgs 20:49 BP 178 / 84 (auto/); mgs 20:49 Pulse 82 MON; mgs 21:08 BP 169 / 81 (auto/); mgs 21:09 Pulse 90 MON; mgs 21:23 Pulse 80 MON; mlc 21:23 BP 180 / 87 (auto/); mlc 21:38 Pulse 88 MON; mlc 21:38 BP 188 / 91 (auto/); mlc 21:42 Pulse 92 MON; mlc 21:42 BP 170 / 82 (auto/); mlc 21:53 Pulse 86 MON; mlc 21:53 BP 166 / 84 (auto/); mlc 22:09 BP 164 / 83; Pulse 82; Resp 18; Temp 97.4; Pain 0/10; mlc 19:28 Body Mass Index 33.28 (90.72 kg, 165.10 cm) rs6 MDM: 20:11 IV Saline Lock ordered. le 20:11 hydrALAZINE 10 mg IV at bolus once ordered. le 20:12 Chest, 2 View (pa\E\lat) Ordered. EDMS 20:12 CBC with Diff Ordered. EDMS 20:12 BMP Ordered. EDMS 20:12 UA Ordered. EDMS 20:12 CIP Ordered. EDMS 20:12 Troponin Ordered. EDMS 20:12 ECG WITH READING ER PHYS+CARDIAG ordered. EDMS 20:35 [facility] Payment Agreement was scanned into [employer] and attached to record. jp5 20:35 Financial registration complete. jp5 21:47 CBC with Diff Reviewed. le 21:47 BMP Reviewed. le 21:47 UA Reviewed. le 21:47 CIP Reviewed. le 21:47 Troponin Reviewed. le 22:24 T-Sheet-- Draft Copy was scanned into [employer] and attached to record. klr 07/05 15:26 ECG/EKG was scanned into [employer] and attached to record. kf3 Administered Medications: 07/04 20:47 Drug: hydrALAZINE 10 mg [hydralazine 20 mg/mL injection solution] Route: IV; Rate: mgs bolus; Site: right antecubital; Signatures: Dispatcher [employer] EDMS Kaur Wren, DISTRICT PLANT ENGINEER DISTRICT PLANT ENGINEER le Kain Lopez, Reg Reg kf3 Lisbeth Carmen RN RN Cait Henderson RN RN [id number] Juice Aviles jp5 Michelle Hollis Matthew RN mgs The chart was reviewed and I authenticate all verbal orders and agree with the evaluation and treatment provided.Attachments: 20:35 [facility] Payment Agreement jp5 22:24 T-Sheet-- Draft Copy klr 07/05 15:26 ECG/EKG kf3 Chart Complete MTDD
== END 2016-07-04 22:11 | disposition home or self-care (01) ==
LOC: M ED 19:26
DX: R03.0 Elevated blood-pressure reading, without diagnosis of hypertension (principal); N28.1 Cyst of kidney, acquired; Z88.2 Allergy status to sulfonamides; Z88.1 Allergy status to other antibiotic agents

== ENCOUNTER 2016-07-05 18:46 | Emergency (ER) | payer BC, OTHER ==
[2016-07-05] MEDS ORDERED: hydroCHLOROthiazide 12.5 MG CAPSULE As Ordered ONE (20:06)
--- NOTE | 2016-07-05 20:23 | EDDOCDS ---
Nurse's Notes [facility] Name: Tammy Hess Age: 56 yrs Sex: Female : 1960 Arrival Date: 07/05/2016 Time: 18:46 Bed TR8 Private MD: Timi Diagnosis: Elevated blood-pressure reading, without diagnosis of hypertension Presentation: 07/05 18:57 Presenting complaint: Patient states: seen here last night for elevated blood pressure, j was given IV Hydralazine, returns because is elevated again. Adult Sepsis Screening: The patient does not have new or worsening altered mentation. Patient's respiratory rate is less than 22. Systolic blood pressure is greater than 100. Patient has a qSOFA score of 0- Negative Sepsis Screen. Suicide/Homicide risk assessment- the patient denies having any suicidal and/or homicidal ideations and does not present with any other emotional, behavioral or mental health complaints. 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 Transition of care: patient was not received from another setting of care. 18:57 Acuity: MARI Level 3 [facility] 18:57 Method Of Arrival: Walkin/Carried/Asstd [facility] Triage Assessment: 19:00 General: Appears in no apparent distress, well nourished, well groomed, Behavior is [facility] appropriate for age, pleasant. Pain: Denies pain. HIV screening NA for this visit Offered previously. Neurological: Level of Consciousness is awake, alert, Oriented to person, place, time, Denies dizziness, headache. Cardiovascular: Chest pain is denied. Respiratory: Airway is patent Respiratory effort is even, unlabored, Respiratory pattern is regular, symmetrical. Derm: Skin is pink, warm & dry. Historical: - Allergies: SULFA (SULFONAMIDES) (Hives); Erythromycin (Anaphylaxis); - Home Meds: 1. none - PMHx: cysts in kidneys; Hypertension; - PSHx: Tonsillectomy; Bilateral kidney operations; ; Rotator Cuff Repair- Right; - Social history: Smoking status: Patient states former smoker of tobacco. No barriers to communication noted, The patient speaks fluent Mongolian. - Family history: Not pertinent. - : The pt / caregiver states he / she is not on anticoagulants. Home medication list is obtained from the patient. - Exposure Risk Screening:: None identified. Screenin:19 Screening information is obtained from the patient. Fall risk: No risks identified. cj Assistance ADL's: requires no assistance with activities of daily living. Abuse/DV Screen: The patient / caregiver reports he/she is: not in a situation that causes fear, pain or injury. Nutritional screening: No deficits noted. Advance Directives: There is no active DNR order. home support is adequate. Assessment: 20:19 General: Appears in no apparent distress, comfortable, Behavior is appropriate for age, cjh cooperative. General: reviewed discharge instructions with patient, encouraged and answered questions, denies further needs. Pain: Denies pain. Vital Signs: 18:48 BP 201 / 88; Pulse 83; Resp 17; Temp 98.4(O); Pulse Ox 98% on R/A; Weight 90.72 kg (R); lr2 Height 5 ft. 5 in. (165.10 cm) (R); Pain 0/10; 19:04 BP 176 / 86 LA Sitting (man/lg); kpj 20:19 BP 170 / 84; Pulse 88; Resp 16; Pulse Ox 98% ; Pain 0/10; cjh 18:48 Body Mass Index 33.28 (90.72 kg, 165.10 cm) lr2 Vitals: 18:48 Log In Time: July 05, 2016 at 18:46. lr2 ED Course: 18:48 Patient visited by Emily Tam. lr2 18:48 Timi is Private Physician. lr2 18:48 Patient moved to Waiting lr2 18:48 Patient moved to Pre RCE lr2 18:59 Triage Initiated kpj 19:27 Patient moved to Triage 1 cz 19:40 [facility] Delacruz [facility] dt4 19:40 Zeus Silva DO is Attending Physician. dt4 19:40 Patient visited by Zulema Delacruz PA-C. dt4 20:06 Timi is Referral Physician. dt4 20:19 The patient / caregiver is instructed regarding the plan of care and ED course. [facility] 20:19 No IV's were initiated during this patient's visit. No procedures done that require [facility] assistance. 20:20 Patient moved to TR8 Administered Medications: 20:19 Drug: Hydrochlorothiazide 12.5 mg Route: PO; [facility] Order Results: There are currently no results for this order. Outcome: 20:06 Discharge ordered by Provider. dt4 20:19 Discharge Assessment: Patient awake, alert and oriented x 3. No cognitive and/or [facility] functional deficits noted. Patient verbalized understanding of disposition instructions. patient administered narcotics - no. The following High Risk Discharge criteria are identified: None. Discharged to home ambulatory, with significant other. Condition: good Condition: stable. Discharge instructions given to patient, Instructed on discharge instructions, follow up and referral plans. medication usage, Demonstrated understanding of instructions, medications, Pt was receptive of discharge instructions/ teaching. Prescriptions given X 1. No special radiology studies were completed. Property :Personal belongings accompany Pt. 20:22 Patient left the ED. [facility] Signatures: Rachel Rankin RN RN West Knight RN RN cz Hafner, Jane, RN RN Zulema Yost, MATT PAPinky dt4 Emily Tam lr2 TACO
--- NOTE | 2016-07-05 20:23 | EDDOCDS ---
Physician Documentation [facility] Name: Tammy Hess Age: 56 yrs Sex: Female : 1960 Arrival Date: 07/05/2016 Time: 18:46 Bed TR8 Private MD: Timi Disposition: 07/05/16 20:06 Discharged to Home/Self Care. Impression: Elevated blood-pressure reading, without diagnosis of hypertension. - Condition is Stable. - Discharge Instructions: Hypertension. - Prescriptions for HYDROCHLOROTHIAZIDE 12.5MG - take 1 tablet by ORAL route once daily; 14 tablet. - Medication Reconciliation, Local Pharmacy Hours form. - Follow up: Emergency Department; When: As needed; Reason: Worsening of conditions. Follow up: Timi; When: 2 - 3 days; Reason: Wound/Symptom Recheck, Recheck today's complaints, Continuance of care. - Problem is new. - Symptoms are unchanged. Historical: - Allergies: SULFA (SULFONAMIDES) (Hives); Erythromycin (Anaphylaxis); - Home Meds: 1. none - PMHx: cysts in kidneys; Hypertension; - PSHx: Tonsillectomy; Bilateral kidney operations; ; Rotator Cuff Repair- Right; - Social history: Smoking status: Patient states former smoker of tobacco. No barriers to communication noted, The patient speaks fluent Thai. - Family history: Not pertinent. - : The pt / caregiver states he / she is not on anticoagulants. Home medication list is obtained from the patient. - Exposure Risk Screening:: None identified. Vital Signs: 07/05 18:48 BP 201 / 88; Pulse 83; Resp 17; Temp 98.4(O); Pulse Ox 98% on R/A; Weight 90.72 kg / lr2 200 lbs (R); Height 5 ft. 5 in. (165.10 cm) (R); Pain 0/10; 19:04 BP 176 / 86 LA Sitting (man/lg); kpj 20:19 BP 170 / 84; Pulse 88; Resp 16; Pulse Ox 98% ; Pain 0/10; cjh 18:48 Body Mass Index 33.28 (90.72 kg, 165.10 cm) lr2 MDM: 20:04 Hydrochlorothiazide 12.5 mg PO once ordered. dt4 20:04 ED course: PT STATES SEEN IN THE ED LAST NIGHT FOR HTN AND WAS NOT DISCHARGED WITH ANY dt4 MEDICATIONS FOR SUCH. RETURNS TODAY STATING SHE TOOK HER B/P AGAIN AT A PHARMACY TODAY AND IT WAS HIGH AGAIN. PT CURRENTLY DENIES ANY CHEST PAIN, SOB, HEADACHE, VISION CHANGES, NUMBNESS/TINGLING. STATES CONCERNED DUE TO FAMILY HISTORY OF BRAIN ANEURYSM AND CARDIAC PROBLEMS IN PARENTS. . Administered Medications: 20:19 Drug: Hydrochlorothiazide 12.5 mg Route: PO; [facility] Signatures: Rachel Rankin RN RN Chichi Maddox RN RN [facility] Zulema Delacruz, PA-C PA-Judith dt4 MTDD
--- NOTE | 2016-07-07 21:22 | EDDOCDS ---
Nurse's Notes [facility] Name: Tammy Hess Age: 56 yrs Sex: Female : 1960 Arrival Date: 07/05/2016 Time: 18:46 Bed TR8 Private MD: Timi Diagnosis: Elevated blood-pressure reading, without diagnosis of hypertension Presentation: 07/05 18:57 Presenting complaint: Patient states: seen here last night for elevated blood pressure, j was given IV Hydralazine, returns because is elevated again. Adult Sepsis Screening: The patient does not have new or worsening altered mentation. Patient's respiratory rate is less than 22. Systolic blood pressure is greater than 100. Patient has a qSOFA score of 0- Negative Sepsis Screen. Suicide/Homicide risk assessment- the patient denies having any suicidal and/or homicidal ideations and does not present with any other emotional, behavioral or mental health complaints. 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 Transition of care: patient was not received from another setting of care. 18:57 Acuity: MARI Level 3 [facility] 18:57 Method Of Arrival: Walkin/Carried/Asstd [facility] Triage Assessment: 19:00 General: Appears in no apparent distress, well nourished, well groomed, Behavior is [facility] appropriate for age, pleasant. Pain: Denies pain. HIV screening NA for this visit Offered previously. Neurological: Level of Consciousness is awake, alert, Oriented to person, place, time, Denies dizziness, headache. Cardiovascular: Chest pain is denied. Respiratory: Airway is patent Respiratory effort is even, unlabored, Respiratory pattern is regular, symmetrical. Derm: Skin is pink, warm & dry. Historical: - Allergies: SULFA (SULFONAMIDES) (Hives); Erythromycin (Anaphylaxis); - Home Meds: 1. none - PMHx: cysts in kidneys; Hypertension; - PSHx: Tonsillectomy; Bilateral kidney operations; ; Rotator Cuff Repair- Right; - Social history: Smoking status: Patient states former smoker of tobacco. No barriers to communication noted, The patient speaks fluent [place]. - Family history: Not pertinent. - : The pt / caregiver states he / she is not on anticoagulants. Home medication list is obtained from the patient. - Exposure Risk Screening:: None identified. Screenin:19 Screening information is obtained from the patient. Fall risk: No risks identified. cj Assistance ADL's: requires no assistance with activities of daily living. Abuse/DV Screen: The patient / caregiver reports he/she is: not in a situation that causes fear, pain or injury. Nutritional screening: No deficits noted. Advance Directives: There is no active DNR order. home support is adequate. Assessment: 20:19 General: Appears in no apparent distress, comfortable, Behavior is appropriate for age, cjh cooperative. General: reviewed discharge instructions with patient, encouraged and answered questions, denies further needs. Pain: Denies pain. Vital Signs: 18:48 BP 201 / 88; Pulse 83; Resp 17; Temp 98.4(O); Pulse Ox 98% on R/A; Weight 90.72 kg (R); lr2 Height 5 ft. 5 in. (165.10 cm) (R); Pain 0/10; 19:04 BP 176 / 86 LA Sitting (man/lg); kp 20:19 BP 170 / 84; Pulse 88; Resp 16; Pulse Ox 98% ; Pain 0/10; cjh 18:48 Body Mass Index 33.28 (90.72 kg, 165.10 cm) lr2 Vitals: 18:48 Log In Time: July 05, 2016 at 18:46. lr2 ED Course: 18:48 Patient visited by Eimly Tam. lr2 18:48 Timi is Private Physician. lr2 18:48 Patient moved to Waiting lr2 18:48 Patient moved to Pre RCE lr2 18:59 Triage Initiated kp 19:27 Patient moved to Triage 1 cz 19:40 Zulema Delacruz PA-C is PHCP. dt4 19:40 Zeus Silva DO is Attending Physician. dt4 19:40 Patient visited by Zulema Delacruz PA-C. dt4 20:06 Timi is Referral Physician. dt4 20:19 The patient / caregiver is instructed regarding the plan of care and ED course. cj 20:19 No IV's were initiated during this patient's visit. No procedures done that require [facility] assistance. 20:20 Patient moved to TR8 20:23 [facility] Payment Agreement was scanned into [employer] and attached to record. gb 21:54 T-Sheet-- Draft Copy was scanned into [employer] and attached to record. klr Administered Medications: 20:19 Drug: Hydrochlorothiazide 12.5 mg Route: PO; [facility] Order Results: There are currently no results for this order. Outcome: 20:06 Discharge ordered by Provider. dt4 20:19 Discharge Assessment: Patient awake, alert and oriented x 3. No cognitive and/or [facility] functional deficits noted. Patient verbalized understanding of disposition instructions. patient administered narcotics - no. The following High Risk Discharge criteria are identified: None. Discharged to home ambulatory, with significant other. Condition: good Condition: stable. Discharge instructions given to patient, Instructed on discharge instructions, follow up and referral plans. medication usage, Demonstrated understanding of instructions, medications, Pt was receptive of discharge instructions/ teaching. Prescriptions given X 1. No special radiology studies were completed. Property :Personal belongings accompany Pt. 20:22 Patient left the ED. [facility] Signatures: aRchel Rankin RN RN [place], RN RN Jewell Groves, Chichi Ortega RN RN [facility] Zulema Delacruz, MATT PAPinky dt4 Michelle Hollis Laura lr2 Chart Complete MTDYajaira
--- NOTE | 2016-07-07 21:22 | EDDOCDS ---
Physician Documentation [facility] [place] Name: Tammy Hess Age: 56 yrs Sex: Female : 1960 Arrival Date: 07/05/2016 Time: 18:46 Bed TR8 Private MD: Timi Disposition: 07/05/16 20:06 Discharged to Home/Self Care. Impression: Elevated blood-pressure reading, without diagnosis of hypertension. - Condition is Stable. - Discharge Instructions: Hypertension. - Prescriptions for HYDROCHLOROTHIAZIDE 12.5MG - take 1 tablet by ORAL route once daily; 14 tablet. - Medication Reconciliation, Local Pharmacy Hours form. - Follow up: Emergency Department; When: As needed; Reason: Worsening of conditions. Follow up: Timi; When: 2 - 3 days; Reason: Wound/Symptom Recheck, Recheck today's complaints, Continuance of care. - Problem is new. - Symptoms are unchanged. Historical: - Allergies: SULFA (SULFONAMIDES) (Hives); Erythromycin (Anaphylaxis); - Home Meds: 1. none - PMHx: cysts in kidneys; Hypertension; - PSHx: Tonsillectomy; Bilateral kidney operations; ; Rotator Cuff Repair- Right; - Social history: Smoking status: Patient states former smoker of tobacco. No barriers to communication noted, The patient speaks fluent Georgian. - Family history: Not pertinent. - : The pt / caregiver states he / she is not on anticoagulants. Home medication list is obtained from the patient. - Exposure Risk Screening:: None identified. Vital Signs: 07/05 18:48 BP 201 / 88; Pulse 83; Resp 17; Temp 98.4(O); Pulse Ox 98% on R/A; Weight 90.72 kg / lr2 200 lbs (R); Height 5 ft. 5 in. (165.10 cm) (R); Pain 0/10; 19:04 BP 176 / 86 LA Sitting (man/lg); kpj 20:19 BP 170 / 84; Pulse 88; Resp 16; Pulse Ox 98% ; Pain 0/10; cjh 18:48 Body Mass Index 33.28 (90.72 kg, 165.10 cm) lr2 MDM: 20:04 Hydrochlorothiazide 12.5 mg PO once ordered. dt4 20:04 ED course: PT STATES SEEN IN THE ED LAST NIGHT FOR HTN AND WAS NOT DISCHARGED WITH ANY dt4 MEDICATIONS FOR SUCH. RETURNS TODAY STATING SHE TOOK HER B/P AGAIN AT A PHARMACY TODAY AND IT WAS HIGH AGAIN. PT CURRENTLY DENIES ANY CHEST PAIN, SOB, HEADACHE, VISION CHANGES, NUMBNESS/TINGLING. STATES CONCERNED DUE TO FAMILY HISTORY OF BRAIN ANEURYSM AND CARDIAC PROBLEMS IN PARENTS. . 20:22 Financial registration complete. gb 20:23 [facility] Payment Agreement was scanned into [employer] and attached to record. gb 21:54 T-Sheet-- Draft Copy was scanned into [employer] and attached to record. klr Administered Medications: 20:19 Drug: Hydrochlorothiazide 12.5 mg Route: PO; [facility] Signatures: Rachel Rankin RN RN Jewell Mason, Eliu Nowak Chichi BelleRN RN [facility] Zulema Delacruz, Michelle Jacobs PA-C The chart was reviewed and I authenticate all verbal orders and agree with the evaluation and treatment provided.Attachments: 20:23 [facility] Payment Agreement gb 21:54 T-Sheet-- Draft Copy klr Chart Complete MTDD
--- NOTE | 2016-07-07 21:22 | EDDOCDS ---
Physician Documentation [facility] Name: Tammy Hess Age: 56 yrs Sex: Female : 1960 Arrival Date: 07/05/2016 Time: 18:46 Bed TR8 Private MD: Timi Disposition: 07/05/16 20:06 Discharged to Home/Self Care. Impression: Elevated blood-pressure reading, without diagnosis of hypertension. - Condition is Stable. - Discharge Instructions: Hypertension. - Prescriptions for HYDROCHLOROTHIAZIDE 12.5MG - take 1 tablet by ORAL route once daily; 14 tablet. - Medication Reconciliation, Local Pharmacy Hours form. - Follow up: Emergency Department; When: As needed; Reason: Worsening of conditions. Follow up: Timi; When: 2 - 3 days; Reason: Wound/Symptom Recheck, Recheck today's complaints, Continuance of care. - Problem is new. - Symptoms are unchanged. Historical: - Allergies: SULFA (SULFONAMIDES) (Hives); Erythromycin (Anaphylaxis); - Home Meds: 1. none - PMHx: cysts in kidneys; Hypertension; - PSHx: Tonsillectomy; Bilateral kidney operations; ; Rotator Cuff Repair- Right; - Social history: Smoking status: Patient states former smoker of tobacco. No barriers to communication noted, The patient speaks fluent Khmer. - Family history: Not pertinent. - : The pt / caregiver states he / she is not on anticoagulants. Home medication list is obtained from the patient. - Exposure Risk Screening:: None identified. Vital Signs: 07/05 18:48 BP 201 / 88; Pulse 83; Resp 17; Temp 98.4(O); Pulse Ox 98% on R/A; Weight 90.72 kg / lr2 200 lbs (R); Height 5 ft. 5 in. (165.10 cm) (R); Pain 0/10; 19:04 BP 176 / 86 LA Sitting (man/lg); kpj 20:19 BP 170 / 84; Pulse 88; Resp 16; Pulse Ox 98% ; Pain 0/10; cjh 18:48 Body Mass Index 33.28 (90.72 kg, 165.10 cm) lr2 MDM: 20:04 Hydrochlorothiazide 12.5 mg PO once ordered. dt4 20:04 ED course: PT STATES SEEN IN THE ED LAST NIGHT FOR HTN AND WAS NOT DISCHARGED WITH ANY dt4 MEDICATIONS FOR SUCH. RETURNS TODAY STATING SHE TOOK HER B/P AGAIN AT A PHARMACY TODAY AND IT WAS HIGH AGAIN. PT CURRENTLY DENIES ANY CHEST PAIN, SOB, HEADACHE, VISION CHANGES, NUMBNESS/TINGLING. STATES CONCERNED DUE TO FAMILY HISTORY OF BRAIN ANEURYSM AND CARDIAC PROBLEMS IN PARENTS. . 20:22 Financial registration complete. gb 20:23 [facility] Payment Agreement was scanned into [employer] and attached to record. gb 21:54 T-Sheet-- Draft Copy was scanned into [employer] and attached to record. klr Administered Medications: 20:19 Drug: Hydrochlorothiazide 12.5 mg Route: PO; [facility] Signatures: Rachel Rankin RN RN Jewell Mason, Eliu Nowak Chichi BelleRN RN [facility] Zulema Delacruz, Michelle Jacobs PA-C The chart was reviewed and I authenticate all verbal orders and agree with the evaluation and treatment provided.Attachments: 20:23 [facility] Payment Agreement gb 21:54 T-Sheet-- Draft Copy klr Chart Complete MTDD
== END 2016-07-05 20:22 | disposition home or self-care (01) ==
LOC: M ED 18:46
DX: R03.0 Elevated blood-pressure reading, without diagnosis of hypertension (principal); N28.1 Cyst of kidney, acquired; Z88.1 Allergy status to other antibiotic agents; Z88.2 Allergy status to sulfonamides; Z87.891 Personal history of nicotine dependence

== ENCOUNTER → 2016-08-28 | Outpatient (CLI) | payer BC, OTHER ==
[2016-08-28 10:57] LABS: CALCIUM LEVEL 9.7 MG/DL (8.5-10.1); CREATININE FOR GFR 1.02 MG/DL (0.55-1.02); FREE T4 0.91 NG/DL (0.76-1.46); GLOMERULAR FILTRATION RATE 59.3 (>51); POTASSIUM SERUM 4.8 MEQ/L (3.5-5.1)
[2016-08-28 15:25] LABS: BASO # 0.1 K/mm3 (0.0-0.2); BASO % 1.3 % (0.0-1.0); EOS # 0.2 K/mm3 (0.0-0.50); EOS % 2.6 % (0.0-3.0); LARGE UNSTAINED CELL # 0.2 K/mm3 (0.0-0.4); LARGE UNSTAINED CELL % 2.5 % (0.0-4.0); LYMPH % 33.9 % (24.0-44.0); MEAN CORPUSCULAR HEMOGLOBIN 30.5 pg (27.0-33.0); MEAN CORPUSCULAR VOLUME 95.2 fl (80.0-96.0); MONO # 0.3 K/mm3 (0.0-0.8); MONO % 4.4 % (0.0-5.0); NEUTROPHILS # 3.3 K/mm3 (1.8-7.7); NEUTROPHILS % 55.3 % (36.0-66.0); PLATELET COUNT, AUTOMATED 252 k/mm3 (150-450); RED CELL DISTRIBUTION WIDTH 12.2 % (11.5-14.5); WHITE BLOOD COUNT 5.9 K/mm3 (4.0-10.0)
== END ==
LOC: M LAB 09:35
PROVIDERS: ATTEND Physician Assistant
DX: R60.9 Edema, unspecified (principal)

== ENCOUNTER → 2016-11-03 | Outpatient (CLI) | payer BC, OTHER, MEDICARE ==
[2016-11-03 11:19] LABS: ALBUMIN 3.7 GM/DL (3.2-5.2); ALBUMIN/GLOBULIN RATIO 1.06 (1.00-1.93); ALKALINE PHOSPHATASE 92 U/L (45-117); ALT/SGPT 104 U/L (12-78); ANION GAP 6 MEQ/L (8-16); AST/SGOT 41 U/L (15-37); BILIRUBIN,TOTAL 0.9 MG/DL (0.2-1.0); BLOOD UREA NITROGEN 16 MG/DL (7-18); CALCIUM LEVEL 9.7 MG/DL (8.5-10.1); CARBON DIOXIDE LEVEL 28 MEQ/L (21-32); CHLORIDE LEVEL 106 MEQ/L (98-107); CHOLESTEROL LEVEL 214 MG/DL (<200); CREATININE FOR GFR 0.92 MG/DL (0.55-1.02); FREE T4 0.96 NG/DL (0.76-1.46); GLOMERULAR FILTRATION RATE > 60.0 (>51); GLUCOSE, FASTING 108 MG/DL (70-105); MAGNESIUM LEVEL 2.3 MG/DL (1.8-2.4); POTASSIUM SERUM 4.2 MEQ/L (3.5-5.1); SODIUM LEVEL 140 MEQ/L (136-145); TOTAL PROTEIN 7.2 GM/DL (6.4-8.2); TRIGLYCERIDES LEVEL 144 MG/DL (<150)
== END ==
LOC: M LAB 09:32
PROVIDERS: ATTEND Physician Assistant
DX: E11.9 Type 2 diabetes mellitus without complications (principal)

== ENCOUNTER → 2017-01-12 | Outpatient (REF) | payer OTHER, MEDICARE | LOC: M LAB REF 21:28 | PROVIDERS: ATTEND Physician Assistant | DX: N39.0 Urinary tract infection, site not specified (principal) ==

== ENCOUNTER → 2017-03-16 | Outpatient (REF) | payer OTHER | LOC: M SFHCWAGY 10:48 | PROVIDERS: ATTEND Nurse Practitioner Women's Health | DX: Z12.4 Encounter for screening for malignant neoplasm of cervix (principal) ==

== ENCOUNTER → 2017-03-16 | Outpatient (CLI) | payer BC ==
--- NOTE | 2017-03-16 11:09 | REPMRS ---
Patient History The patient states she had a clinical breast exam in 03/2017. Patient is postmenopausal. Family history of breast cancer in maternal aunt at age 50 or over and breast cancer in maternal cousin at age 50 or over. Digital Woman Screen Mammo: March 16, 2017 - Exam #: [id number] Bilateral CC and MLO view(s) were taken. Technologist: Janeth Smalls, Technologist Prior study comparison: March 18, 2016, left breast digital mammo diagnostic unilateral, performed at [facility]. March 14, 2016, digital woman screen mammo performed at [facility]. FINDINGS: There are scattered fibroglandular densities. There has been no change in the appearance of the mammogram from the prior studies. There is a mild amount of residual fibroglandular tissue which is fairly symmetric. There is no interval development of dominant mass, architectural distortion, or clustered microcalcification suggestive of malignancy. ASSESSMENT: BI-RADS/ACR category 1 mammogram. Negative. Recommendation Routine screening mammogram in 1 year (for women over age 40). This mammogram was interpreted with the aid of an FDA-approved computer-aided dectection system. Electronically Signed By: Roverto Chambers MD 03/16/17 [id number]
== END ==
LOC: M WHC 09:53
PROVIDERS: ATTEND Nurse Practitioner Women's Health
DX: Z12.31 Encounter for screening mammogram for malignant neoplasm of breast (principal); Z78.0 Asymptomatic menopausal state

== ENCOUNTER 2017-05-30 12:14 | Emergency (ER) | payer BC, MEDICARE, OTHER ==
[2017-05-30 14:25] LABS: ALBUMIN 4.2 GM/DL (3.2-5.2); ALBUMIN/GLOBULIN RATIO 1.05 (1.00-1.93); ALKALINE PHOSPHATASE 102 U/L (45-117); ALT/SGPT 72 U/L (12-78); ANION GAP 7 MEQ/L (8-16); AST/SGOT 28 U/L (7-37); BILIRUBIN,DIRECT 0.2 MG/DL (0.0-0.2); BILIRUBIN,TOTAL 1.2 MG/DL (0.2-1.0); BLOOD UREA NITROGEN 16 MG/DL (7-18); CALCIUM LEVEL 9.8 MG/DL (8.5-10.1); CARBON DIOXIDE LEVEL 28 MEQ/L (21-32); CHLORIDE LEVEL 109 MEQ/L (98-107); CREATININE FOR GFR 0.95 MG/DL (0.55-1.02); GLOMERULAR FILTRATION RATE > 60.0 (>51); GLUCOSE, FASTING 103 MG/DL (70-105); POTASSIUM SERUM 4.5 MEQ/L (3.5-5.1); SODIUM LEVEL 144 MEQ/L (136-145); TOTAL PROTEIN 8.2 GM/DL (6.4-8.2)
[2017-05-30 14:29] LABS: T UPTAKE 36 % (30-39); THYROXINE (T4) 9.4 UG/DL (4.5-12.0)
[2017-05-30 14:42] LABS: BASO # 0.1 10^3/uL (0.0-0.2); BASO % 0.7 % (0.0-1.0); EOS # 0.1 10^3/uL (0.0-0.50); EOS % 0.7 % (0.0-3.0); IMMATURE GRANULOCYTE % 0.3 % (0-0); LYMPH % 20.7 % (24.0-44.0); MEAN CORPUSCULAR HGB CONC 33.2 g/dl (32.0-36.5); MEAN CORPUSCULAR VOLUME 93.2 fl (80.0-96.0); MONO # 0.4 10^3/uL (0.0-0.8); MONO % 4.1 % (0.0-5.0); NEUTROPHILS # 7.2 10^3/uL (1.8-7.7); NEUTROPHILS % 73.5 % (36.0-66.0); PLATELET COUNT, AUTOMATED 266 10^3/uL (150-450); RED CELL DISTRIBUTION WIDTH 12.8 % (11.5-14.5); WHITE BLOOD COUNT 9.7 10^3/uL (4.0-10.0)
== END 2017-05-30 15:27 | disposition home or self-care (01) ==
LOC: M ED 12:14
DX: R00.2 Palpitations (principal); Z88.1 Allergy status to other antibiotic agents; Z88.2 Allergy status to sulfonamides; Z98.890 Other specified postprocedural states; Z82.49 Family history of ischemic heart disease and other diseases of the circulatory system
CPT/HCPCS: 71020

== ENCOUNTER → 2017-06-03 | Outpatient (CLI) | payer BC, OTHER, MEDICARE ==
[2017-06-03 16:25] LABS: APPEARANCE, URINE HAZY (CLEAR); BACTERIA, URINE AUTO 3+ (NEGATIVE); BILIRUBIN, URINE AUTO NEGATIVE (NEGATIVE); BLOOD, URINE BLOOD 1+ (NEGATIVE); COLOR, URINE YELLOW (YELLOW); GLUCOSE, URINE (UA) AUTO NEGATIVE (NEGATIVE); KETONE, URINE AUTO NEGATIVE (NEGATIVE); LEUKOCYTE ESTERASE, URINE AUTO 2+ (NEGATIVE); MUCUS, URINE SMALL (NEGATIVE); NITRITE, URINE AUTO NEGATIVE (NEGATIVE); PROTEIN, URINE AUTO NEGATIVE (NEGATIVE); RBC, URINE AUTO 4 /HPF (0-3); SPECIFIC GRAVITY URINE AUTO 1.017 (1.002-1.035); SQUAMOUS EPITHELIAL CELL UR AU 2 /HPF (0-6); UROBILINOGEN, URINE AUTO 0.2 mg/dL (0.0-2.0); WBC, URINE AUTO 39 /HPF (0-3)
== END ==
LOC: M LAB 15:38
DX: I11.9 Hypertensive heart disease without heart failure (principal)
CPT/HCPCS: 36415

== ENCOUNTER → 2017-10-16 | Outpatient (CLI) | payer BC, OTHER, MEDICARE | LOC: M PLARAD 09:56 | DX: R90.82 White matter disease, unspecified (principal); G93.0 Cerebral cysts; R42 Dizziness and giddiness; I73.89 Other specified peripheral vascular diseases | CPT/HCPCS: 70551 ==

== ENCOUNTER → 2017-11-02 | Outpatient (CLI) | payer OTHER, BC, MEDICARE ==
[2017-11-02 15:09] LABS: BASO # 0.1 10^3/uL (0.0-0.2); BASO % 0.9 % (0.0-1.0); EOS # 0.1 10^3/uL (0.0-0.50); HEMATOCRIT 36.6 % (36.0-47.0); IMMATURE GRANULOCYTE % 0.3 % (0-3.0); LYMPH # 2.4 10^3/uL (1.5-4.5); LYMPH % 34.2 % (24.0-44.0); MEAN CORPUSCULAR HEMOGLOBIN 31.4 pg (27.0-33.0); MEAN CORPUSCULAR HGB CONC 32.8 g/dl (32.0-36.5); MEAN CORPUSCULAR VOLUME 95.8 fl (80.0-96.0); MONO # 0.4 10^3/uL (0.0-0.8); MONO % 5.9 % (0.0-5.0); NEUTROPHILS % 56.7 % (36.0-66.0); PLATELET COUNT, AUTOMATED 249 10^3/uL (150-450); RED BLOOD COUNT 3.82 10^6/uL (4.00-5.40)
[2017-11-02 15:26] LABS: ANION GAP 7 MEQ/L (8-16); BLOOD UREA NITROGEN 17 MG/DL (7-18); CALCIUM LEVEL 10.2 MG/DL (8.5-10.1); CARBON DIOXIDE LEVEL 27 MEQ/L (21-32); CHLORIDE LEVEL 108 MEQ/L (98-107); CREATININE FOR GFR 1.05 MG/DL (0.55-1.30); GLOMERULAR FILTRATION RATE 57.1 (>51); GLUCOSE, FASTING 105 MG/DL (70-100); POTASSIUM SERUM 4.6 MEQ/L (3.5-5.1); SODIUM LEVEL 142 MEQ/L (136-145)
[2017-11-02 15:34] LABS: ESTIMATED AVERAGE GLUCOSE 131 MG/DL (60-110); HEMOGLOBIN A1c 6.2 %
== END ==
LOC: M WUC 11:30
DX: E11.9 Type 2 diabetes mellitus without complications (principal); I48.0 Paroxysmal atrial fibrillation

== ENCOUNTER → 2018-02-09 | Outpatient (CLI) | payer MEDICARE, OTHER, BC ==
[2018-02-09 19:08] LABS: ALBUMIN 3.9 GM/DL (3.2-5.2); ALBUMIN/GLOBULIN RATIO 1.11 (1.00-1.93); ALKALINE PHOSPHATASE 72 U/L (45-117); ALT/SGPT 53 U/L (12-78); ANION GAP 7 MEQ/L (8-16); AST/SGOT 23 U/L (7-37); BILIRUBIN,TOTAL 0.9 MG/DL (0.2-1.0); BLOOD UREA NITROGEN 20 MG/DL (7-18); CALCIUM LEVEL 9.8 MG/DL (8.8-10.2); CARBON DIOXIDE LEVEL 25 MEQ/L (21-32); CHLORIDE LEVEL 110 MEQ/L (98-107); CHOLESTEROL LEVEL 276 MG/DL (<200); CHOLESTEROL RISK RATIO 5.872 (<5); CREATININE FOR GFR 1.11 MG/DL (0.55-1.30); ESTIMATED AVERAGE GLUCOSE 126 MG/DL (60-110); GLOMERULAR FILTRATION RATE 53.4 (>45); GLUCOSE, FASTING 90 MG/DL (70-100); HDL CHOLESTEROL 47 MG/DL (>40); LDL CHOLESTEROL 175 MG/DL (<100); NON-HDL-C 229 MG/DL; POTASSIUM SERUM 4.9 MEQ/L (3.5-5.1); SODIUM LEVEL 142 MEQ/L (136-145); TOTAL PROTEIN 7.4 GM/DL (6.4-8.2); TRIGLYCERIDES LEVEL 271 MG/DL (<150)
[2018-02-09 19:13] LABS: PTH INTACT 126.9 PG/ML (18.5-88.0)
== END ==
LOC: M WUC 12:29
DX: E83.52 Hypercalcemia (principal); E78.00 Pure hypercholesterolemia, unspecified; E11.9 Type 2 diabetes mellitus without complications
CPT/HCPCS: 80053

== ENCOUNTER → 2018-03-17 | Outpatient (CLI) | payer MEDICARE, BC | LOC: M WHC 09:25 | DX: Z12.31 Encounter for screening mammogram for malignant neoplasm of breast (principal); Z01.419 Encounter for gynecological examination (general) (routine) without abnormal findings (principal) | CPT/HCPCS: 77067 ==

== ENCOUNTER → 2018-03-23 | Outpatient (CLI) | payer MEDICARE, BC, OTHER | LOC: M RAD 09:18 | DX: N20.0 Calculus of kidney (principal); N18.3 Chronic kidney disease, stage 3 (moderate); I12.9 Hypertensive chronic kidney disease with stage 1 through stage 4 chronic kidney disease, or unspecified chronic kidney disease; N28.1 Cyst of kidney, acquired | CPT/HCPCS: 78070 ==

== ENCOUNTER → 2018-05-05 | Outpatient (CLI) | payer MEDICARE, BC, OTHER ==
[2018-05-05 12:30] LABS: BASO # 0.1 10^3/uL (0.0-0.2); BASO % 1.2 % (0.0-1.0); EOS # 0.2 10^3/uL (0.0-0.50); EOS % 2.2 % (0.0-3.0); HEMATOCRIT 38.8 % (36.0-47.0); HEMOGLOBIN 12.4 g/dl (12.0-15.5); IMMATURE GRANULOCYTE % 0.4 % (0-3.0); LYMPH # 2.2 10^3/uL (1.5-4.5); LYMPH % 31.9 % (24.0-44.0); MONO # 0.4 10^3/uL (0.0-0.8); MONO % 6.1 % (0.0-5.0); NEUTROPHILS # 3.9 10^3/uL (1.8-7.7); NEUTROPHILS % 58.2 % (36.0-66.0); PLATELET COUNT, AUTOMATED 231 10^3/uL (150-450); RED CELL DISTRIBUTION WIDTH 12.6 % (11.5-14.5); WHITE BLOOD COUNT 6.7 10^3/uL (4.0-10.0)
[2018-05-05 12:50] LABS: ANION GAP 7 MEQ/L (8-16); BLOOD UREA NITROGEN 21 MG/DL (7-18); CALCIUM LEVEL 9.2 MG/DL (8.8-10.2); CARBON DIOXIDE LEVEL 26 MEQ/L (21-32); CHLORIDE LEVEL 109 MEQ/L (98-107); CHOLESTEROL LEVEL 261 MG/DL (<200); CHOLESTEROL RISK RATIO 6.214 (<5); CREATININE FOR GFR 0.98 MG/DL (0.55-1.30); FREE T4 0.91 NG/DL (0.76-1.46); GLOMERULAR FILTRATION RATE > 60.0 (>45); GLUCOSE, FASTING 111 MG/DL (70-100); HDL CHOLESTEROL 42 MG/DL (>40); LDL CHOLESTEROL 182 MG/DL (<100); NON-HDL-C 219 MG/DL; POTASSIUM SERUM 5.3 MEQ/L (3.5-5.1); SODIUM LEVEL 142 MEQ/L (136-145); TRIGLYCERIDES LEVEL 186 MG/DL (<150)
[2018-05-05 13:08] LABS: ESTIMATED AVERAGE GLUCOSE 146 MG/DL (60-110); HEMOGLOBIN A1c 6.7 %
== END ==
LOC: M WUC 09:26
DX: E11.9 Type 2 diabetes mellitus without complications (principal); E78.00 Pure hypercholesterolemia, unspecified; I48.0 Paroxysmal atrial fibrillation
CPT/HCPCS: 84443

== ENCOUNTER → 2018-06-03 | Outpatient (REF) | payer MEDICARE, OTHER | LOC: M LAB REF 13:55 | PROVIDERS: ATTEND Internal Medicine Nephrology | DX: N39.0 Urinary tract infection, site not specified (principal) ==

== ENCOUNTER 2018-07-21 14:10 | Emergency (ER) | payer MEDICARE, OTHER ==
[~2018-07-21] VITALS: Ht 165.1 cm; Wt 81.8 kg
[2018-07-21] MEDS ORDERED: POTA4.25 (14:24)
[2018-07-21] MEDS ORDERED: DIAZ2TAB (14:24)
[2018-07-21] MEDS ORDERED: METO1TAB32 (14:24)
[2018-07-21] MEDS ORDERED: LISI10TA4 (14:24)
[2018-07-21] MEDS ORDERED: ATOR1TAB21 (14:24)
[2018-07-21] MEDS ORDERED: ALLO100T (14:24)
[2018-07-21] MEDS ORDERED: ELIQ5TAB (14:24)
--- NOTE | 2018-07-21 15:01 | REP ---
RIGHT SHOULDER, THREE VIEWS: HISTORY: Fall. There is no acute fracture or dislocation. The joint spaces are normal in appearance. IMPRESSION: There is no acute fracture or dislocation. Electronically Signed by Venkat Bagley MD 07/21/2018 03:03 P
[2018-07-21 15:29] VITALS: BP 114/67
== END 2018-07-21 15:31 | disposition home or self-care (01) ==
LOC: M ED 14:10
DX: S40.011A Contusion of right shoulder, initial encounter (principal); W01.0XXA Fall on same level from slipping, tripping and stumbling without subsequent striking against object, initial encounter; Y92.481 Parking lot as the place of occurrence of the external cause; I10 Essential (primary) hypertension; E11.9 Type 2 diabetes mellitus without complications; I48.91 Unspecified atrial fibrillation; Z79.899 Other long term (current) drug therapy; Z79.01 Long term (current) use of anticoagulants; Z88.1 Allergy status to other antibiotic agents; Z88.2 Allergy status to sulfonamides; Z87.891 Personal history of nicotine dependence

== ENCOUNTER → 2018-08-30 | Outpatient (CLI) | payer MEDICARE, OTHER ==
[~2018-08-30] MED LIST: ALLO100T; ATOR1TAB21; DIAZ2TAB; ELIQ5TAB; LISI10TA4; METO1TAB32; POTA4.25
[2018-08-30 11:15] LABS: ALBUMIN 3.8 GM/DL (3.2-5.2); ALT/SGPT 62 U/L (12-78); BILIRUBIN,TOTAL 0.6 MG/DL (0.2-1.0); BLOOD UREA NITROGEN 25 MG/DL (7-18); CALCIUM LEVEL 9.6 MG/DL (8.8-10.2); CARBON DIOXIDE LEVEL 27 MEQ/L (21-32); CHLORIDE LEVEL 109 MEQ/L (98-107); CHOLESTEROL LEVEL 175 MG/DL (<200); CHOLESTEROL RISK RATIO 4.268 (<5); GLOMERULAR FILTRATION RATE > 60.0 (>45); GLUCOSE, FASTING 125 MG/DL (70-100); HDL CHOLESTEROL 41 MG/DL (>40); LDL CHOLESTEROL 105 MG/DL (<100); NON-HDL-C 134 MG/DL; POTASSIUM SERUM 4.9 MEQ/L (3.5-5.1); SODIUM LEVEL 140 MEQ/L (136-145); TOTAL PROTEIN 7.4 GM/DL (6.4-8.2); TRIGLYCERIDES LEVEL 146 MG/DL (<150)
[2018-08-30 12:43] LABS: CREATININE, URINE 44.3 MG/DL; MALB URINE SIEMENS 20.4 MG/L
[2018-08-30 14:24] LABS: HEMOGLOBIN A1c 6.2 %
== END ==
LOC: M LAB 07:58
PROVIDERS: ATTEND Family Medicine
DX: E11.9 Type 2 diabetes mellitus without complications (principal); E78.00 Pure hypercholesterolemia, unspecified

== ENCOUNTER → 2018-10-15 | Outpatient (CLI) | payer MEDICARE, OTHER ==
--- NOTE | 2018-10-15 13:39 | REP ---
MR Brain without contrast History: Cerebral cyst Comparison: 10/17/1979 Areas of increased signal intensity on T2-weighted images are present in the periventricular and subcortical white matter. This represents small-vessel ischemic disease. There is no intraparenchymal hemorrhage, infarct or mass. The ventricular system is normal in appearance. An arachnoid cyst is present in the left middle cranial fossa. The arachnoid cyst measures 1.7 cm in transverse by 3.3 cm in AP by 2.6 cm in cephalocaudal dimensions and is unchanged in size compared to the previous study. There is mass effect on the adjacent left temporal lobe without midline shift. There is no subdural fluid collection. Minimal mucosal thickening is present in the left maxillary sinus. Impression: 1. Small vessel ischemic disease. 2. Left middle cranial fossa arachnoid cyst unchanged compared to the previous study. Electronically Signed by Venkat Bagley MD 10/15/2018 01:32 P
== END ==
LOC: M PLARAD 10:18
PROVIDERS: ATTEND Physician Assistant Medical
DX: G93.0 Cerebral cysts (principal); R90.82 White matter disease, unspecified

== ENCOUNTER → 2018-12-06 | Outpatient (CLI) | payer MEDICARE, BC, OTHER ==
[2018-12-06 10:24] LABS: BASO # 0.1 10^3/uL (0.0-0.2); EOS # 0.2 10^3/uL (0.0-0.50); EOS % 2.6 % (0.0-3.0); HEMATOCRIT 39.1 % (36.0-47.0); HEMOGLOBIN 12.6 g/dl (12.0-15.5); LYMPH % 25.6 % (24.0-44.0); MEAN CORPUSCULAR HEMOGLOBIN 31.7 pg (27.0-33.0); MEAN CORPUSCULAR HGB CONC 32.2 g/dl (32.0-36.5); MEAN CORPUSCULAR VOLUME 98.5 fl (80.0-96.0); MONO # 0.4 10^3/uL (0.0-0.8); MONO % 5.8 % (0.0-5.0); NEUTROPHILS % 64.7 % (36.0-66.0); PLATELET COUNT, AUTOMATED 242 10^3/uL (150-450); RED BLOOD COUNT 3.97 10^6/uL (4.00-5.40); WHITE BLOOD COUNT 7.7 10^3/uL (4.0-10.0)
[2018-12-06 10:58] LABS: HEMOGLOBIN A1c 6.7 %
[2018-12-06 11:03] LABS: CALCIUM LEVEL 9.5 MG/DL (8.8-10.2); CREATININE FOR GFR 1.01 MG/DL (0.55-1.30); FREE T4 0.8 NG/DL (0.76-1.46); GLOMERULAR FILTRATION RATE 59.5 (>45); POTASSIUM SERUM 5.4 MEQ/L (3.5-5.1); THYROID STIMULATING HORMONE 1.81 uIU/ML (0.358-3.740)
== END ==
LOC: M LAB 09:41
PROVIDERS: ATTEND Physician Assistant
DX: E11.9 Type 2 diabetes mellitus without complications (principal); E78.00 Pure hypercholesterolemia, unspecified; I48.0 Paroxysmal atrial fibrillation

== ENCOUNTER → 2019-01-25 | Outpatient (CLI) | payer MEDICARE, BC, OTHER ==
[2019-01-25 08:29] LABS: HEMATOCRIT 35.5 % (36.0-47.0); HEMOGLOBIN 11.4 g/dl (12.0-15.5); MEAN CORPUSCULAR HGB CONC 32.1 g/dl (32.0-36.5); MEAN CORPUSCULAR VOLUME 99.7 fl (80.0-96.0); PLATELET COUNT, AUTOMATED 191 10^3/uL (150-450); RED BLOOD COUNT 3.56 10^6/uL (4.00-5.40); WHITE BLOOD COUNT 5.7 10^3/uL (4.0-10.0)
[2019-01-25 09:05] LABS: ALBUMIN 3.6 GM/DL (3.2-5.2); ALT/SGPT 55 U/L (12-78); BILIRUBIN,TOTAL 0.8 MG/DL (0.2-1.0); BLOOD UREA NITROGEN 25 MG/DL (7-18); CALCIUM LEVEL 9.6 MG/DL (8.8-10.2); CARBON DIOXIDE LEVEL 27 MEQ/L (21-32); CHLORIDE LEVEL 109 MEQ/L (98-107); CREATININE FOR GFR 0.96 MG/DL (0.55-1.30); GLOMERULAR FILTRATION RATE > 60.0 (>45); GLUCOSE, FASTING 122 MG/DL (70-100); POTASSIUM SERUM 4.4 MEQ/L (3.5-5.1); SODIUM LEVEL 142 MEQ/L (136-145); TOTAL PROTEIN 6.7 GM/DL (6.4-8.2)
== END ==
LOC: M LAB 07:45
PROVIDERS: ATTEND Internal Medicine Cardiovascular Disease
DX: I48.0 Paroxysmal atrial fibrillation (principal); I11.9 Hypertensive heart disease without heart failure; E78.00 Pure hypercholesterolemia, unspecified

== ENCOUNTER → 2019-03-08 | Outpatient (CLI) | payer MEDICARE, BC, OTHER ==
[2019-03-08 12:04] LABS: BASO # 0.1 10^3/uL (0.0-0.2); BASO % 0.9 % (0.0-1.0); EOS # 0.1 10^3/uL (0.0-0.5); EOS % 2.2 % (0.0-3.0); HEMATOCRIT 38.3 % (36.0-47.0); HEMOGLOBIN 12.4 g/dl (12.0-15.5); MEAN CORPUSCULAR HEMOGLOBIN 31.3 pg (27.0-33.0); MEAN CORPUSCULAR HGB CONC 32.4 g/dl (32.0-36.5); MEAN CORPUSCULAR VOLUME 96.7 fl (80.0-96.0); MONO # 0.4 10^3/uL (0.0-0.8); MONO % 6.2 % (0.0-5.0); NEUTROPHILS # 3.8 10^3/uL (1.5-8.5); NEUTROPHILS % 59.4 % (36.0-66.0); PLATELET COUNT, AUTOMATED 263 10^3/uL (150-450); RED BLOOD COUNT 3.96 10^6/uL (4.00-5.40); WHITE BLOOD COUNT 6.3 10^3/uL (4.0-10.0)
[2019-03-08 12:29] LABS: BILIRUBIN,TOTAL 1.2 MG/DL (0.2-1.0); CALCIUM LEVEL 10.5 MG/DL (8.8-10.2); CHOLESTEROL RISK RATIO 4.977 (<5); CREATININE FOR GFR 1.13 MG/DL (0.55-1.30); GLOMERULAR FILTRATION RATE 52.1 (>45); POTASSIUM SERUM 5.2 MEQ/L (3.5-5.1); TOTAL PROTEIN 7.9 GM/DL (6.4-8.2)
[2019-03-08 13:12] LABS: HEMOGLOBIN A1c 6.4 %
== END ==
LOC: M LAB 11:21
PROVIDERS: ATTEND Family Medicine
DX: E78.00 Pure hypercholesterolemia, unspecified (principal); E11.9 Type 2 diabetes mellitus without complications

== ENCOUNTER → 2019-03-18 | Outpatient (CLI) | payer MEDICARE, BC ==
--- NOTE | 2019-03-18 10:16 | REPMRS ---
Patient History The patient states she has not had a clinical breast exam in over a year. Patient is postmenopausal. Family history of breast cancer at age 50 or over in maternal aunt, breast cancer at age 50 or over in maternal cousin. No Hormone Replacement Therapy Digital Woman Screen Mammo: March 18, 2019 - Exam #: [id number] Bilateral CC and MLO view(s) were taken. Technologist: Janeth Smalls, Technologist Prior study comparison: March 17, 2018, bilateral digital woman screen mammo performed at [facility]. March 16, 2017, digital woman screen mammo performed at [facility]. March 14, 2016, digital woman screen mammo performed at [facility]. FINDINGS: There are scattered fibroglandular densities. There has been no change in the appearance of the mammogram from the prior studies. There is a mild amount of scattered fibroglandular density which is fairly symmetric. There is no interval development of dominant mass, architectural distortion, or grouped microcalcification suggestive of malignancy. 3-D tomosynthesis shows no additional findings. Assessment: BI-RADS/ACR category 1 mammogram. Negative Mammogram. Recommendation Routine screening mammogram of both breasts in 1 year (for women over age 40). This patient's Lifetime Breast Cancer Risk is estimated at 9.1 %. This mammogram was interpreted with the aid of an FDA-approved computer-aided dectection system. Electronically Signed By: Ankit Urbano MD 03/18/19 [id number]
== END ==
LOC: M WHC 09:00
PROVIDERS: ATTEND Nurse Practitioner Women's Health
DX: Z12.31 Encounter for screening mammogram for malignant neoplasm of breast (principal)

== ENCOUNTER → 2019-06-06 | Outpatient (CLI) | payer MEDICARE, BC, OTHER ==
[2019-06-06 09:58] LABS: CHOLESTEROL RISK RATIO 4.857 (<5); CREATININE FOR GFR 1.03 MG/DL (0.55-1.30); POTASSIUM SERUM 4.7 MEQ/L (3.5-5.1)
[2019-06-06 11:34] LABS: HEMOGLOBIN A1c 6.6 %
== END ==
LOC: M LAB 08:27
PROVIDERS: ATTEND Physician Assistant
DX: E11.9 Type 2 diabetes mellitus without complications (principal)

== ENCOUNTER → 2019-09-22 | Outpatient (CLI) | payer MEDICARE, BC, OTHER ==
[2019-09-22 09:19] LABS: BASO # 0.1 10^3/uL (0.0-0.2); BASO % 0.7 % (0.0-1.0); EOS # 0.2 10^3/uL (0.0-0.5); EOS % 2.8 % (0.0-3.0); HEMATOCRIT 36.8 % (36.0-47.0); HEMOGLOBIN 11.8 g/dl (12.0-15.5); LYMPH # 1.9 10^3/uL (1.5-5.0); LYMPH % 27.9 % (24.0-44.0); MEAN CORPUSCULAR HEMOGLOBIN 30.9 pg (27.0-33.0); MEAN CORPUSCULAR HGB CONC 32.1 g/dl (32.0-36.5); MEAN CORPUSCULAR VOLUME 96.3 fl (80.0-96.0); MONO # 0.5 10^3/uL (0.0-0.8); NEUTROPHILS # 4.1 10^3/uL (1.5-8.5); NEUTROPHILS % 61.3 % (36.0-66.0); PLATELET COUNT, AUTOMATED 239 10^3/uL (150-450); RED BLOOD COUNT 3.82 10^6/uL (4.00-5.40); WHITE BLOOD COUNT 6.7 10^3/uL (4.0-10.0)
[2019-09-22 09:40] LABS: ALBUMIN 3.7 GM/DL (3.2-5.2); BILIRUBIN,TOTAL 0.8 MG/DL (0.2-1.0); CALCIUM LEVEL 9.5 MG/DL (8.8-10.2); CREATININE FOR GFR 1.03 MG/DL (0.55-1.30); POTASSIUM SERUM 5.1 MEQ/L (3.5-5.1); TOTAL PROTEIN 7.3 GM/DL (6.4-8.2)
[2019-09-22 09:41] LABS: HEMOGLOBIN A1c 6.2 %
== END ==
LOC: M LAB 08:27
PROVIDERS: ATTEND Physician Assistant
DX: E11.22 Type 2 diabetes mellitus with diabetic chronic kidney disease (principal); N18.9 Chronic kidney disease, unspecified

== ENCOUNTER → 2020-02-07 | Outpatient (CLI) | payer MEDICARE, BC, OTHER ==
[2020-02-07 14:54] LABS: HEMATOCRIT 37.5 % (36.0-47.0); MEAN CORPUSCULAR HEMOGLOBIN 31.4 pg (27.0-33.0); MEAN CORPUSCULAR VOLUME 98.2 fl (80.0-96.0); PLATELET COUNT, AUTOMATED 244 10^3/uL (150-450); RED BLOOD COUNT 3.82 10^6/uL (4.00-5.40); WHITE BLOOD COUNT 5.8 10^3/uL (4.0-10.0)
[2020-02-07 15:00] LABS: ALBUMIN 3.7 GM/DL (3.2-5.2); CALCIUM LEVEL 9.6 MG/DL (8.8-10.2); GLOMERULAR FILTRATION RATE 59.8 (>45); PHOSPHORUS LEVEL 2.8 MG/DL (2.5-4.9); POTASSIUM SERUM 4.6 MEQ/L (3.5-5.1)
[2020-03-19 09:51] LABS: HEMOGLOBIN A1c 6.5 %
== END ==
LOC: M LAB 08:23
PROVIDERS: ATTEND Family Medicine
DX: E11.22 Type 2 diabetes mellitus with diabetic chronic kidney disease (principal); I11.9 Hypertensive heart disease without heart failure; I48.0 Paroxysmal atrial fibrillation; R94.31 Abnormal electrocardiogram [ECG] [EKG]

== ENCOUNTER → 2020-03-07 | Outpatient (REF) | payer MEDICARE, OTHER | LOC: M LAB REF 17:22 | PROVIDERS: ATTEND Internal Medicine Nephrology | DX: N39.0 Urinary tract infection, site not specified (principal) ==

== ENCOUNTER → 2020-03-19 | Outpatient (CLI) | payer MEDICARE, BC ==
--- NOTE | 2020-03-19 10:06 | REPMRS ---
Patient History The patient states she has not had a clinical breast exam in over a year. Family history of breast cancer at age 50 or over in maternal aunt, breast cancer at age 50 or over in maternal cousin. No Hormone Replacement Therapy 3D TOMOSYNTHESIS WAS PERFORMED. The Peg Acosta lifetime risk for breast cancer is 8.7% VOLPARA DENSITY B.. Digital Woman Screen Mammo: March 19, 2020 - Exam #: [id number] Bilateral CC and MLO view(s) were taken. Technologist: RT Adamaris Prior study comparison: March 18, 2019, bilateral digital woman screen mammo performed at [facility]. March 17, 2018, bilateral digital woman screen mammo performed at [facility]. FINDINGS: There are scattered fibroglandular densities. There has been no change in the appearance of the mammogram from the prior studies. There is a mild amount of residual fibroglandular tissue which is fairly symmetric. There is no interval development of dominant mass, architectural distortion, or clustered microcalcification suggestive of malignancy. Assessment: BI-RADS/ACR category 1 mammogram. Negative Mammogram. Recommendation Routine screening mammogram in 1 year (for women over age 40). This mammogram was interpreted with the aid of an FDA-approved computer-aided dectection system. Electronically Signed By: Roverto Chambers MD 03/19/20 [id number]
== END ==
LOC: M WHC 08:42
PROVIDERS: ATTEND Nurse Practitioner Women's Health
DX: Z12.31 Encounter for screening mammogram for malignant neoplasm of breast (principal)

== ENCOUNTER → 2020-05-04 | Outpatient (CLI) | payer MEDICARE, BC, OTHER ==
--- NOTE | 2020-05-07 08:53 | REPVR ---
PROCEDURE INFORMATION: Exam: MR Head Without Contrast Exam date and time: 05/05/2020 1:56 AM Age: 60 years old Clinical indication: Condition or disease; Other: Cyst; Additional info: Cerebral cyst TECHNIQUE: Imaging protocol: MR of the head without contrast. COMPARISON: MRI-Brain without Contrast 10/15/2018 11:52 AM FINDINGS: Brain: There is unchanged left anterior temporal arachnoid. This shows mass effect on the adjacent anterior temporal lobe without abnormal signal within the subjacent brain. Patchy T2 prolongation in the cerebral white matter is nonspecific, but likely secondary to not significantly changed microvascular disease. Diffusion images are normal. No evidence of acute infarction. No evidence of acute intracranial hemorrhage. No extra-axial fluid collections. Ventricles and cerebrospinal fluid spaces are normal in size and configuration for the patient's age. There is no evidence of mass-effect or midline shift. Flow voids of the [place] and major cerebral vascular structures appear intact. Craniocervical junction appears unremarkable, with normal position of cerebellar tonsils and no evidence of Chiari I malformation. Cerebral ventricles: Normal. No ventriculomegaly. Bones/joints: No acute finding. Paranasal sinuses: Minimal scattered mucosal thickening. No air-fluid levels. No acute sinusitis. Mastoid air cells: No significant mastoid effusion. Orbits: Unremarkable as visualized. No exophthalmos or evidence of mass. Soft tissues: Unremarkable as visualized. IMPRESSION: Stable examination. Stable left temporal arachnoid and microvascular change. No acute infarct, acute hemorrhage, or intra-axial mass lesion. Electronically signed by: Rachel Smiley On 05/07/2020 08:54:13 AM
== END ==
LOC: M PLARAD 09:51
PROVIDERS: ATTEND Physician Assistant Medical
DX: G93.0 Cerebral cysts (principal); I73.89 Other specified peripheral vascular diseases; G43.009 Migraine without aura, not intractable, without status migrainosus

== ENCOUNTER → 2020-06-22 | Outpatient (CLI) | payer MEDICARE, BC, OTHER ==
[~2020-06-22] MED LIST changes: +LISI10TA22; -LISI10TA4
[2020-06-22 13:53] LABS: BASO # 0.1 10^3/uL (0.0-0.2); BASO % 0.8 % (0.0-1.0); EOS # 0.2 10^3/uL (0.0-0.5); EOS % 2.6 % (0.0-3.0); HEMOGLOBIN 12.1 g/dl (12.0-15.5); LYMPH # 2.2 10^3/uL (1.5-5.0); LYMPH % 33.8 % (24.0-44.0); MEAN CORPUSCULAR HEMOGLOBIN 31.8 pg (27.0-33.0); MEAN CORPUSCULAR HGB CONC 32.7 g/dl (32.0-36.5); MEAN CORPUSCULAR VOLUME 97.1 fl (80.0-96.0); MONO # 0.4 10^3/uL (0.0-0.8); MONO % 6.7 % (0.0-5.0); NEUTROPHILS # 3.6 10^3/uL (1.5-8.5); NEUTROPHILS % 55.8 % (36.0-66.0); PLATELET COUNT, AUTOMATED 228 10^3/uL (150-450); RED BLOOD COUNT 3.81 10^6/uL (4.00-5.40); WHITE BLOOD COUNT 6.5 10^3/uL (4.0-10.0)
[2020-06-22 14:48] LABS: ALBUMIN 3.8 GM/DL (3.2-5.2); BILIRUBIN,TOTAL 0.8 MG/DL (0.2-1.0); CALCIUM LEVEL 10.1 MG/DL (8.8-10.2); CHOLESTEROL RISK RATIO 5.175 (<5); CREATININE FOR GFR 1.01 MG/DL (0.55-1.30); FREE T4 0.89 NG/DL (0.76-1.46); GLOMERULAR FILTRATION RATE 59.1 (>45); POTASSIUM SERUM 4.7 MEQ/L (3.5-5.1); THYROID STIMULATING HORMONE 0.933 uIU/ML (0.358-3.740); TOTAL PROTEIN 7.3 GM/DL (6.4-8.2)
[2020-06-22 15:51] LABS: HEMOGLOBIN A1c 6.3 %
== END ==
LOC: M LAB 12:30
PROVIDERS: ATTEND Physician Assistant
DX: E11.22 Type 2 diabetes mellitus with diabetic chronic kidney disease (principal); I48.0 Paroxysmal atrial fibrillation; E78.00 Pure hypercholesterolemia, unspecified

== ENCOUNTER → 2020-06-29 | Outpatient (CLI) | payer SELFPAY ==
[~2020-06-29] MED LIST changes: -LISI10TA22; +LISI10TA4
== END ==
LOC: M LABSMTC 11:35
PROVIDERS: ATTEND Pediatrics
DX: Z20.822 Contact with and (suspected) exposure to COVID-19 (principal)

== ENCOUNTER → 2020-08-27 | Outpatient (CLI) | payer MEDICARE, BC, OTHER ==
[~2020-08-27] MED LIST changes: +LISI10TA22; -LISI10TA4
[2020-08-27 07:32] LABS: BASO # 0.1 10^3/uL (0.0-0.2); EOS # 0.2 10^3/uL (0.0-0.5); EOS % 3.2 % (0.0-3.0); HEMATOCRIT 38.1 % (36.0-47.0); HEMOGLOBIN 12.4 g/dl (12.0-15.5); LYMPH # 2.4 10^3/uL (1.5-5.0); LYMPH % 32.6 % (24.0-44.0); MEAN CORPUSCULAR HEMOGLOBIN 31.9 pg (27.0-33.0); MEAN CORPUSCULAR HGB CONC 32.5 g/dl (32.0-36.5); MEAN CORPUSCULAR VOLUME 97.9 fl (80.0-96.0); MONO # 0.5 10^3/uL (0.0-0.8); MONO % 6.3 % (2.0-8.0); NEUTROPHILS # 4.1 10^3/uL (1.5-8.5); NEUTROPHILS % 56.6 % (36.0-66.0); PLATELET COUNT, AUTOMATED 260 10^3/uL (150-450); RED BLOOD COUNT 3.89 10^6/uL (4.00-5.40); WHITE BLOOD COUNT 7.3 10^3/uL (4.0-10.0)
[2020-08-27 08:02] LABS: ALBUMIN 3.8 GM/DL (3.2-5.2); BILIRUBIN,TOTAL 0.4 MG/DL (0.2-1.0); CALCIUM LEVEL 9.4 MG/DL (8.8-10.2); CREATININE FOR GFR 1.01 MG/DL (0.55-1.30); GLOMERULAR FILTRATION RATE 59.1 (>45); POTASSIUM SERUM 4.3 MEQ/L (3.5-5.1); TOTAL PROTEIN 7.3 GM/DL (6.4-8.2)
[2020-08-27 08:04] LABS: HEMOGLOBIN A1c 6.2 %
== END ==
LOC: M LAB 07:01
PROVIDERS: ATTEND Internal Medicine Cardiovascular Disease
DX: I48.0 Paroxysmal atrial fibrillation (principal); R73.9 Hyperglycemia, unspecified; I11.9 Hypertensive heart disease without heart failure; R01.1 Cardiac murmur, unspecified; R94.31 Abnormal electrocardiogram [ECG] [EKG]; R06.02 Shortness of breath

== ENCOUNTER → 2020-09-21 | Outpatient (REF) | payer MEDICARE, OTHER, BC | LOC: M SFHCWAGY 13:27 | PROVIDERS: ATTEND Advanced Practice Midwife | DX: Z12.4 Encounter for screening for malignant neoplasm of cervix (principal); R87.618 Other abnormal cytological findings on specimens from cervix uteri | CPT/HCPCS: 87624; G0123; G0463 ==

== ENCOUNTER → 2021-02-22 | Outpatient (CLI) | payer MEDICARE, BC, OTHER ==
[2021-02-22 07:17] LABS: HEMOGLOBIN A1c 6.2 %
[2021-02-22 07:20] LABS: CALCIUM LEVEL 9.8 MG/DL (8.8-10.2); CREATININE FOR GFR 1.16 MG/DL (0.55-1.30); GLOMERULAR FILTRATION RATE 50.2 (>45); POTASSIUM SERUM 4.6 MEQ/L (3.5-5.1)
== END ==
LOC: M LAB 06:28
PROVIDERS: ATTEND Family Medicine
DX: E11.9 Type 2 diabetes mellitus without complications (principal)

== ENCOUNTER → 2021-03-11 | Outpatient (REF) | payer MEDICARE, BC, OTHER | LOC: M LAB REF 17:17 | PROVIDERS: ATTEND Internal Medicine Nephrology | DX: N18.31 Chronic kidney disease, stage 3a (principal) ==

== ENCOUNTER → 2021-03-20 | Outpatient (CLI) | payer MEDICARE, BC, OTHER ==
--- NOTE | 2021-03-20 08:40 | REPMRS ---
Patient History The patient states she had a clinical breast exam in September 21, 2020. Patient is postmenopausal. Family history of breast cancer at age 50 or over in maternal aunt, breast cancer at age 50 or over in maternal cousin, breast cancer at age 40 in maternal niece. No Hormone Replacement Therapy Patient states no breast complaints today. Patient has signed MRS History Sheet. Digital Woman Screen Mammo: March 20, 2021 - Exam #: [id number] Bilateral CC and MLO view(s) were taken. Technologist: Ave Katz, Supervisor Ditching Prior study comparison: March 19, 2020, bilateral digital woman screen mammo performed at [facility]. March 18, 2019, bilateral digital woman screen mammo performed at [facility]. FINDINGS: There are scattered fibroglandular densities. Screening. Digital screening (2D) mammography was performed bilaterally in the CC and MLO projections. Additionally, breast tomosynthesis (3D mammography) was performed bilaterally in the CC and MLO projections. Todays exam was compared to the prior exam/exams. By history, the patient has no complaints of a palpable breast abnormality or other significant breast complaints. The breasts are unchanged in size and shape. There are no adele-soft tissue densities or spiculated masses. There is no internal architectural distortion. Once again, stable benign appearing calcifications are seen.There are no suspicious adele-calcific clusters. Skin thickening or nipple retraction is not present. IMPRESSION: BI-RADS Category 2- Benign Findings. There is no evidence of malignant alteration of the breasts. Followup examination recommended in one year. The Volpara volumetric breast density category is B, there are scattered areas of fibroglandular densities. This mammogram was read with the assistance [facility],an FDA approved computer aided detection system for mammography. The lifetime Tyrer-Cuzick score is 11.4 % Negative x-ray reports should not delay surgical consultation if a dominant or clinically suspicious mass is present. Not all breast cancers can be identified by mammography. Therefore, we recommend that you continue to perform regular breast self-examination and physical examination and then promptly contact your physician of any concerns or changes. Adenosis and dense breasts may obscure an underlying neoplasm. Assessment: BI-RADS/ACR category 2 mammogram. Benign Findings. Recommendation Routine screening mammogram of both breasts in 1 year. Electronically Signed By: Deangelo Castro DO 03/20/21 0841
== END ==
LOC: M WHC 07:47
PROVIDERS: ATTEND Advanced Practice Midwife
DX: Z12.31 Encounter for screening mammogram for malignant neoplasm of breast (principal); Z78.0 Asymptomatic menopausal state; Z80.3 Family history of malignant neoplasm of breast

== ENCOUNTER → 2021-08-23 | Outpatient (REF) | payer MEDICARE, BC, OTHER | LOC: M LAB REF 15:33 | PROVIDERS: ATTEND Physician Assistant | DX: R35.0 Frequency of micturition (principal) ==

== ENCOUNTER → 2021-08-26 | Outpatient (CLI) | payer MEDICARE, BC, OTHER ==
[2021-08-26 09:30] LABS: CALCIUM LEVEL 9.9 MG/DL (8.8-10.2); GLOMERULAR FILTRATION RATE 59.6 (>45); POTASSIUM SERUM 4.5 MEQ/L (3.5-5.1)
[2021-08-26 09:44] LABS: HEMOGLOBIN A1c 6.3 %
== END ==
LOC: M LAB 07:07
PROVIDERS: ATTEND Family Medicine
DX: E11.9 Type 2 diabetes mellitus without complications (principal)

== ENCOUNTER → 2021-09-03 | Outpatient (REF) | payer MEDICARE, BC, OTHER | LOC: M LAB REF 19:25 | PROVIDERS: ATTEND Internal Medicine | DX: R30.0 Dysuria (principal) ==

== ENCOUNTER → 2021-10-01 | Outpatient (CLI) | payer MEDICARE, BC, OTHER | LOC: M WHC 12:45 | PROVIDERS: ATTEND Family Medicine | DX: M67.432 Ganglion, left wrist (principal) ==

== ENCOUNTER → 2021-10-09 | Outpatient (REF) | payer MEDICARE, OTHER ==
[2021-10-09 12:24] LABS: CALCIUM LEVEL 10.5 MG/DL (8.8-10.2); CREATININE FOR GFR 1.05 MG/DL (0.55-1.30); GLOMERULAR FILTRATION RATE 56.3 (>45); POTASSIUM SERUM 4.6 MEQ/L (3.5-5.1)
== END ==
LOC: M SFHCCLAY 07:57
PROVIDERS: ATTEND Family Medicine
DX: R22.9 Localized swelling, mass and lump, unspecified (principal)

== ENCOUNTER → 2021-10-24 | Outpatient (CLI) | payer MEDICARE, BC, OTHER ==
[~2021-10-24] MED LIST changes: +PROHANCE 279.3MG/ML 5ML VIAL As Ordered ONE
== END ==
LOC: M RAD 08:33
PROVIDERS: ATTEND Family Medicine
DX: M25.432 Effusion, left wrist (principal)

== ENCOUNTER → 2022-02-24 | Outpatient (CLI) | payer MEDICARE, BC, OTHER ==
[~2022-02-24] MED LIST changes: -PROHANCE 279.3MG/ML 5ML VIAL As Ordered ONE
[2022-02-24 10:08] LABS: CALCIUM LEVEL 10.2 MG/DL (8.8-10.2); CREATININE FOR GFR 1.03 MG/DL (0.55-1.30); GLOMERULAR FILTRATION RATE 57.4 (>45); POTASSIUM SERUM 4.7 MEQ/L (3.5-5.1)
[2022-02-24 10:13] LABS: HEMOGLOBIN A1c 5.7 %
== END ==
LOC: M LAB 08:50
PROVIDERS: ATTEND Family Medicine
DX: E11.9 Type 2 diabetes mellitus without complications (principal)

== ENCOUNTER → 2022-03-21 | Outpatient (REF) | payer MEDICARE, BC, OTHER ==
[2022-03-21 15:40] LABS: GC DNA AMPLIFICATION NEGATIVE (NEGATIVE)
== END ==
LOC: M SFHCWAGY 13:01
PROVIDERS: ATTEND Obstetrics & Gynecology
DX: Z11.3 Encounter for screening for infections with a predominantly sexual mode of transmission (principal)

== ENCOUNTER → 2022-03-21 | Outpatient (CLI) | payer MEDICARE, BC, OTHER | LOC: M WHC 08:56 | PROVIDERS: ATTEND Obstetrics & Gynecology | DX: Z12.31 Encounter for screening mammogram for malignant neoplasm of breast (principal) ==

== ENCOUNTER 2022-04-20 06:22 | Inpatient (IN) | payer MEDICARE, BC, OTHER ==
[~2022-04-20] VITALS: Ht 165.1 cm; Wt 90.6 kg
[~2022-04-20 06:22] MED LIST changes: -ALLO100T; +ALLO100T PO; -ELIQ5TAB; +ELIQ5TAB PO; -LISI10TA22; +LISI10TA22 PO; -METO1TAB32; +METO1TAB32 PO; -POTA4.25; +POTA4.25 PO
[2022-04-20 07:02] LABS: BASO # 0.1 10^3/uL (0.0-0.2); BASO % 0.7 % (0.0-1.0); EOS # 0.2 10^3/uL (0.0-0.5); EOS % 1.3 % (0.0-3.0); HEMATOCRIT 37.5 % (36.0-47.0); HEMOGLOBIN 12.4 g/dl (12.0-15.5); LYMPH # 1.9 10^3/uL (1.5-5.0); LYMPH % 13.2 % (24.0-44.0); MEAN CORPUSCULAR HEMOGLOBIN 31.2 pg (27.0-33.0); MEAN CORPUSCULAR HGB CONC 33.1 g/dl (32.0-36.5); MEAN CORPUSCULAR VOLUME 94.2 fl (80.0-96.0); MONO # 0.7 10^3/uL (0.0-0.8); MONO % 5.1 % (2.0-8.0); NEUTROPHILS # 11.3 10^3/uL (1.5-8.5); NEUTROPHILS % 79.3 % (36.0-66.0); PLATELET COUNT, AUTOMATED 292 10^3/uL (150-450); RED BLOOD COUNT 3.98 10^6/uL (4.00-5.40); WHITE BLOOD COUNT 14.3 10^3/uL (4.0-10.0)
[2022-04-20 07:38] LABS: ALBUMIN 3.9 G/DL (3.2-5.2); ALT/SGPT 67 U/L (7.0-40); BILIRUBIN,DIRECT 0.2 MG/DL (<0.4); BILIRUBIN,TOTAL 0.9 MG/DL (0.3-1.2); BLOOD UREA NITROGEN 19 MG/DL (9-23); CALCIUM LEVEL 10.4 MG/DL (8.3-10.6); CARBON DIOXIDE LEVEL 22 MMOL/L (20-31); CHLORIDE LEVEL 107 MMOL/L (98-107); CK-MB VALUE MASS < 1.0 NG/ML (<3.6); CPK CREATINE PHOSPHOKINASE 54 U/L (34-145); GLOMERULAR FILTRATION RATE 59.4 (>45); GLUCOSE, FASTING 149 MG/DL (74-106); LIPASE 74 U/L (12-53); MB/CK RELATIVE INDEX 1.85 (< OR =4); POTASSIUM SERUM 4.2 MMOL/L (3.5-5.1); SODIUM LEVEL 139 MMOL/L (136-145); TOTAL PROTEIN 7.3 G/DL (5.7-8.2)
[2022-04-20] MEDS ORDERED: fentaNYL 100 MCG/2 ML INJECTION IV PRN (08:45)
[2022-04-20] MEDS ORDERED: ONDANSETRON 4MG 2ML VIAL IV ONE (08:45)
[2022-04-20] MEDS ORDERED: NS 1,000 ML IV SCH (08:45)
[2022-04-20] MEDS ORDERED: ISOVUE-370 76% 100ML VIAL As Ordered ONE (10:59)
[2022-04-20] MEDS ORDERED: cefTRIAXone SOD 1 GM in D5W MINI-BAG PLUS 50 ML IV ONE (11:50)
[2022-04-20] MEDS ORDERED: GLUCOSE 4GM CHEW TABLET PO PRN (12:40)
[2022-04-20] MEDS ORDERED: MOM 30ML SUSPENSION UDC PO PRN (12:40)
[2022-04-20] MEDS ORDERED: MAALOX 30 ML SUSP *UDC PO PRN (12:40)
[2022-04-20] MEDS ORDERED: DEXTROSE 50% 50 ML SYRINGE IV PRN (12:40)
[2022-04-20] MEDS ORDERED: GLUCAGON INJ 1MG VIAL SC PRN (12:40)
[2022-04-20] MEDS ORDERED: MORPHINE 2 MG/ML 1ML VIAL IV PRN (12:40)
[2022-04-20] MEDS: NS 1,000 ML IV SCH ×2 (13:04→21:12)
[2022-04-20] MEDS ORDERED: CINA30TA4 PO (13:29)
[2022-04-20] MEDS ORDERED: PRAV40TA2 PO (13:29)
[2022-04-20] MEDS ORDERED: HOME MED LIST COMPLETE! XX SCH (13:35)
[2022-04-20 13:58] LABS: RSV AMPLIFICATION NEGATIVE (NEGATIVE)
[2022-04-20 14:00] LABS: HEMOGLOBIN A1c 5.8 % (4.0-6.0)
[2022-04-20] MEDS: DOCUSATE SODIUM 100MG CAPSULE PO SCH ×2 (15:12→21:12)
[2022-04-20] MEDS: PANTOPRAZOLE 40MG TAB (PROTONIX) PO SCH (15:23)
[2022-04-20] MEDS ORDERED: MORPHINE 4 MG/ML 1ML VIAL IV ONE (16:45)
[2022-04-20 17:00] VITALS: BP 165/76
[2022-04-20] MEDS: ACETAMINOPHEN TAB 650MG DOSE (2X325MG) PO PRN (17:05)
[2022-04-20] MEDS ORDERED: ONDANSETRON 4MG 2ML VIAL IV PRN (17:15)
[2022-04-20] MEDS ORDERED: INSULIN LISPRO (NovoLOG) PER UNIT SC SCH ×2 (17:30→21:00)
[2022-04-20] MEDS ORDERED: ACETAMINOPHEN 1000MG 100ML IV BAG IV ONE (17:35)
[2022-04-20] MEDS ORDERED: NS 1,000 ML IV ONE ×3 (18:10→19:45)
[2022-04-20 18:15] LABS: CALCIUM LEVEL 9.2 MG/DL (8.3-10.6); CREATININE FOR GFR 1.04 MG/DL (0.55-1.30); GLOMERULAR FILTRATION RATE 56.8 (>45); MAGNESIUM LEVEL 1.7 MG/DL (1.8-2.4); POTASSIUM SERUM 4.2 MMOL/L (3.5-5.1)
[2022-04-20] MEDS: METOPROLOL SUCC *XL* 25MG TAB (TopROL *XL*) PO SCH (18:39)
[2022-04-20] MEDS: allopurinoL 100 MG TAB PO SCH (18:40)
[2022-04-20] MEDS: MAG SULF 1GM/100ML (MAG RUN) 1 GM in IV 1 EA IV ONE ×2 (18:42→19:02)
[2022-04-20] MEDS ORDERED: ACETAMINOPHEN *IV* 1,000 MG IV ONE ×2 (19:00)
[2022-04-20 20:00] VITALS: BP 96/54
[2022-04-20] MEDS ORDERED: VANCOMYCIN HCL 1,000 MG, VIAL MATE ADAPTER 1 EACH in NS 250 ML IV ONE ×2 (21:00→22:00)
[2022-04-20] MEDS ORDERED: APIXABAN 5 MG TAB (ELIQUIS) PO SCH (21:00)
[2022-04-20] MEDS: PIPERACILLIN/TAZOBACTAM SOD 3.375 GM in D5W MINI-BAG PLUS 50 ML IV SCH (21:11)
[2022-04-20] MEDS: PRAVASTATIN 20 MG TAB PO SCH (21:12)
[2022-04-21] VITALS (14 sets, daily range): BP systolic 100–140; BP diastolic 54–63
[2022-04-21] MEDS: PIPERACILLIN/TAZOBACTAM SOD 3.375 GM in D5W MINI-BAG PLUS 50 ML IV SCH ×4 (02:23→20:00)
[2022-04-21] MEDS: ACETAMINOPHEN TAB 650MG DOSE (2X325MG) PO PRN ×2 (04:40→13:22)
[2022-04-21 07:09] LABS: HEMATOCRIT 31.6 % (36.0-47.0); MEAN CORPUSCULAR HEMOGLOBIN 30.7 pg (27.0-33.0); RED BLOOD COUNT 3.29 10^6/uL (4.00-5.40); WHITE BLOOD COUNT 17.9 10^3/uL (4.0-10.0)
[2022-04-21 07:25] LABS: HEMOGLOBIN 10.1 g/dl (12.0-15.5); PLATELET COUNT, AUTOMATED 164 10^3/uL (150-450)
[2022-04-21 07:27] LABS: CALCIUM LEVEL 8.2 MG/DL (8.3-10.6); CREATININE FOR GFR 1.53 MG/DL (0.55-1.30); GLOMERULAR FILTRATION RATE 36.4 (>45); MAGNESIUM LEVEL 1.6 MG/DL (1.8-2.4); POTASSIUM SERUM 3.8 MMOL/L (3.5-5.1)
[2022-04-21 08:12] LABS: LYMPHOCYTES 4 % (16-44); MONOCYTES 3 % (0-5); NEUTROPHILS 83 % (28-66)
[2022-04-21 08:14] LABS: ANISOCYTOSIS 1+; PLATELET ESTIMATE NORMAL (NORMAL)
[2022-04-21 08:29] LABS: VANCOMYCIN RANDOM 23.9 UG/ML
[2022-04-21] MEDS: NS 1,000 ML IV SCH ×4 (08:46→21:16)
[2022-04-21] MEDS: PANTOPRAZOLE 40MG TAB (PROTONIX) PO SCH (09:00)
[2022-04-21] MEDS: DOCUSATE SODIUM 100MG CAPSULE PO SCH ×2 (09:00→20:55)
[2022-04-21] MEDS ORDERED: VANCOMYCIN HCL 750 MG, VIAL MATE ADAPTER 1 EACH in NS 250 ML IV SCH (09:00)
[2022-04-21] MEDS: METOPROLOL SUCC *XL* 25MG TAB (TopROL *XL*) PO SCH (09:00)
[2022-04-21] MEDS: allopurinoL 100 MG TAB PO SCH (09:00)
[2022-04-21] MEDS ORDERED: LIDOCAINE 2% 100MG/5ML SDV (FOR ANES.) As Ordered ONE (10:23)
[2022-04-21] MEDS ORDERED: propofoL 200 MG/20 ML VIAL As Ordered ONE (10:44)
[2022-04-21] MEDS ORDERED: dexameTHASONE 4 MG/ML 1ML VIAL (J1100 PER 1MG) As Ordered ONE (10:45)
[2022-04-21] MEDS ORDERED: ONDANSETRON 4MG 2ML VIAL As Ordered ONE (10:45)
[2022-04-21] MEDS ORDERED: MIDAZOLAM INJ 2MG/2ML VIAL (J2250 PER 1MG) As Ordered ONE (10:45)
[2022-04-21] MEDS ORDERED: fentaNYL 100 MCG/2 ML INJECTION As Ordered ONE (10:45)
[2022-04-21] MEDS ORDERED: ISOVUE-300 61% 50ML VIAL As Ordered ONE (10:50)
[2022-04-21 11:53] LABS: CREATININE,RANDOM URINE 96.2 MG/DL
[2022-04-21] MEDS ORDERED: cefTRIAXone SOD 1 GM in D5W MINI-BAG PLUS 50 ML IV SCH (12:00)
[2022-04-21] MEDS ORDERED: VANCOMYCIN HCL 1,000 MG, VIAL MATE ADAPTER 1 EACH in D5W 250 ML IV SCH (12:00)
[2022-04-21] MEDS: MAG SULF 1GM/100ML (MAG RUN) 1 GM in IV 1 EA IV SCH ×2 (12:40→13:50)
[2022-04-21 17:05] LABS: CREATININE FOR GFR 1.4 MG/DL (0.55-1.30); GLOMERULAR FILTRATION RATE 40.3 (>45); MAGNESIUM LEVEL 2.5 MG/DL (1.8-2.4); POTASSIUM SERUM 3.9 MMOL/L (3.5-5.1)
[2022-04-21] MEDS: APIXABAN 5 MG TAB (ELIQUIS) PO SCH (20:56)
[2022-04-21] MEDS: PRAVASTATIN 20 MG TAB PO SCH (20:56)
[2022-04-22] VITALS: BP 106/54
[2022-04-22] MEDS: PIPERACILLIN/TAZOBACTAM SOD 3.375 GM in D5W MINI-BAG PLUS 50 ML IV SCH ×2 (02:06→09:12)
[2022-04-22 04:21] VITALS: BP 110/64
[2022-04-22 05:19] LABS: HEMATOCRIT 29.6 % (36.0-47.0); HEMOGLOBIN 9.5 g/dl (12.0-15.5); MEAN CORPUSCULAR HGB CONC 32.1 g/dl (32.0-36.5); MEAN CORPUSCULAR VOLUME 96.7 fl (80.0-96.0); PLATELET COUNT, AUTOMATED 143 10^3/uL (150-450); RED BLOOD COUNT 3.06 10^6/uL (4.00-5.40)
[2022-04-22 05:53] LABS: ATYPICAL LYMPH 1 % (0-5); BASOPHILS 1 % (0-1); LYMPHOCYTES 10 % (16-44); METAMYELOCYTES 1 % (0-0); MONOCYTES 5 % (0-5); NEUTROPHILS 72 % (28-66)
[2022-04-22 05:54] LABS: PLATELET ESTIMATE NORMAL (NORMAL); TOXIC VACUOLATION 1+
[2022-04-22 05:57] LABS: CALCIUM LEVEL 8.5 MG/DL (8.3-10.6); CREATININE FOR GFR 1.23 MG/DL (0.55-1.30); GLOMERULAR FILTRATION RATE 46.8 (>45); MAGNESIUM LEVEL 2.3 MG/DL (1.8-2.4); POTASSIUM SERUM 3.9 MMOL/L (3.5-5.1)
[2022-04-22 08:00] VITALS: BP 141/73
[2022-04-22] MEDS: NS 1,000 ML IV SCH ×2 (09:09→21:12)
[2022-04-22] MEDS: allopurinoL 100 MG TAB PO SCH (09:12)
[2022-04-22] MEDS: DOCUSATE SODIUM 100MG CAPSULE PO SCH ×2 (09:12→20:57)
[2022-04-22] MEDS: METOPROLOL SUCC *XL* 25MG TAB (TopROL *XL*) PO SCH (09:13)
[2022-04-22] MEDS: APIXABAN 5 MG TAB (ELIQUIS) PO SCH ×2 (09:13→21:12)
[2022-04-22] MEDS: PANTOPRAZOLE 40MG TAB (PROTONIX) PO SCH (09:13)
[2022-04-22 12:00] VITALS: BP 125/73
[2022-04-22] MEDS ORDERED: cefTRIAXone SOD 1 GM in D5W MINI-BAG PLUS 50 ML IV SCH (14:00)
[2022-04-22 16:00] VITALS: BP 156/80
[2022-04-22 20:01] VITALS: BP 138/73
[2022-04-22] MEDS: PRAVASTATIN 20 MG TAB PO SCH (21:12)
[2022-04-23] VITALS: BP 131/68
[2022-04-23 04:00] VITALS: BP 162/78
[2022-04-23 04:38] LABS: BASO # 0.1 10^3/uL (0.0-0.2); BASO % 0.4 % (0.0-1.0); EOS # 0.4 10^3/uL (0.0-0.5); EOS % 2.5 % (0.0-3.0); HEMOGLOBIN 9.4 g/dl (12.0-15.5); LYMPH # 2.7 10^3/uL (1.5-5.0); LYMPH % 17.5 % (24.0-44.0); MEAN CORPUSCULAR HEMOGLOBIN 30.4 pg (27.0-33.0); MEAN CORPUSCULAR HGB CONC 31.3 g/dl (32.0-36.5); MEAN CORPUSCULAR VOLUME 97.1 fl (80.0-96.0); MONO # 0.6 10^3/uL (0.0-0.8); MONO % 4.1 % (2.0-8.0); NEUTROPHILS # 11.6 10^3/uL (1.5-8.5); PLATELET COUNT, AUTOMATED 168 10^3/uL (150-450); RED BLOOD COUNT 3.09 10^6/uL (4.00-5.40); WHITE BLOOD COUNT 15.6 10^3/uL (4.0-10.0)
[2022-04-23 05:01] LABS: CALCIUM LEVEL 8.7 MG/DL (8.3-10.6); CREATININE FOR GFR 1.19 MG/DL (0.55-1.30); GLOMERULAR FILTRATION RATE 48.6 (>45)
[2022-04-23 07:34] VITALS: BP 150/70
[2022-04-23] MEDS: NS 1,000 ML IV SCH (08:06)
[2022-04-23] MEDS: APIXABAN 5 MG TAB (ELIQUIS) PO SCH (08:07)
[2022-04-23 08:08] VITALS: BP 150/70
[2022-04-23] MEDS: PANTOPRAZOLE 40MG TAB (PROTONIX) PO SCH (08:08)
[2022-04-23] MEDS: allopurinoL 100 MG TAB PO SCH (08:08)
[2022-04-23] MEDS: METOPROLOL SUCC *XL* 25MG TAB (TopROL *XL*) PO SCH (08:08)
[2022-04-23] MEDS: DOCUSATE SODIUM 100MG CAPSULE PO SCH (08:08)
[2022-04-23] MEDS ORDERED: LEVO1TAB40 PO (11:58)
== END 2022-04-23 14:27 | disposition home or self-care (01) | DRG 660 ==
LOC: M ED 06:22 → M ED INP 12:40 → ENRESERV 15:23 → M PCU 16:49
PROVIDERS: ADMIT Internal Medicine; ATTEND Internal Medicine
PROC: 0T778DZ Dilation of Left Ureter with Intraluminal Device, Via Natural or Artificial Opening Endoscopic (ICD-10-PCS; principal; 2022-04-21 21:54)
DX: N10 Acute pyelonephritis (principal); E87.20 Acidosis, unspecified; I48.0 Paroxysmal atrial fibrillation; I10 Essential (primary) hypertension; R73.03 Prediabetes; E78.5 Hyperlipidemia, unspecified; E04.2 Nontoxic multinodular goiter; N28.1 Cyst of kidney, acquired; M25.512 Pain in left shoulder; D72.829 Elevated white blood cell count, unspecified; N20.0 Calculus of kidney; K75.81 Nonalcoholic steatohepatitis (NASH); G43.909 Migraine, unspecified, not intractable, without status migrainosus; R16.0 Hepatomegaly, not elsewhere classified; B96.20 Unspecified Escherichia coli [E. coli] as the cause of diseases classified elsewhere; R91.8 Other nonspecific abnormal finding of lung field; N30.20 Other chronic cystitis without hematuria; R42 Dizziness and giddiness; N17.9 Acute kidney failure, unspecified; K21.9 Gastro-esophageal reflux disease without esophagitis; Z79.01 Long term (current) use of anticoagulants; Z79.899 Other long term (current) drug therapy; Z88.2 Allergy status to sulfonamides; Z88.1 Allergy status to other antibiotic agents

== ENCOUNTER → 2022-05-02 | Outpatient (REF) | payer MEDICARE, OTHER ==
[~2022-05-02] MED LIST changes: +CINA30TA4 PO; +LEVO1TAB40 PO; +PRAV40TA2 PO
[2022-05-02 18:43] LABS: BASO # 0.1 10^3/uL (0.0-0.2); BASO % 1.2 % (0.0-1.0); EOS # 0.2 10^3/uL (0.0-0.5); EOS % 2.6 % (0.0-3.0); HEMATOCRIT 38.6 % (36.0-47.0); LYMPH # 2.3 10^3/uL (1.5-5.0); MEAN CORPUSCULAR HEMOGLOBIN 30.6 pg (27.0-33.0); MEAN CORPUSCULAR HGB CONC 31.1 g/dl (32.0-36.5); MEAN CORPUSCULAR VOLUME 98.5 fl (80.0-96.0); MONO # 0.3 10^3/uL (0.0-0.8); MONO % 4.7 % (2.0-8.0); NEUTROPHILS % 58.2 % (36.0-66.0); PLATELET COUNT, AUTOMATED 366 10^3/uL (150-450); RED BLOOD COUNT 3.92 10^6/uL (4.00-5.40); WHITE BLOOD COUNT 6.8 10^3/uL (4.0-10.0)
[2022-05-02 19:34] LABS: HEMOGLOBIN A1c 5.7 % (4.0-6.0)
[2022-05-02 19:37] LABS: ALBUMIN 3.7 G/DL (3.2-5.2); CALCIUM LEVEL 10.5 MG/DL (8.3-10.6); GLOMERULAR FILTRATION RATE 59.4 (>45); PHOSPHORUS LEVEL 3.2 MG/DL (2.4-5.1); POTASSIUM SERUM 5.3 MMOL/L (3.5-5.1); PTH INTACT 104.7 PG/ML (18.5-88.0)
== END ==
LOC: M SFHCCLAY 10:10
PROVIDERS: ATTEND Family Medicine
DX: I48.11 Longstanding persistent atrial fibrillation (principal); N12 Tubulo-interstitial nephritis, not specified as acute or chronic; E21.0 Primary hyperparathyroidism

== ENCOUNTER → 2022-05-09 | Outpatient (REF) | payer MEDICARE, OTHER | LOC: M SMT 16:56 | PROVIDERS: ATTEND Urology | DX: N28.9 Disorder of kidney and ureter, unspecified (principal) ==

== ENCOUNTER → 2022-06-26 | Outpatient (CLI) | payer MEDICARE, BC, OTHER | LOC: M RAD 11:46 | PROVIDERS: ATTEND Urology | DX: Z01.818 Encounter for other preprocedural examination (principal); N28.9 Disorder of kidney and ureter, unspecified ==

== ENCOUNTER → 2022-07-04 | Outpatient (CLI) | payer MEDICARE, BC, OTHER ==
[2022-07-04 11:54] LABS: HEMATOCRIT 37.2 % (36.0-47.0); MEAN CORPUSCULAR HEMOGLOBIN 31.1 pg (27.0-33.0); MEAN CORPUSCULAR HGB CONC 32.3 g/dl (32.0-36.5); MEAN CORPUSCULAR VOLUME 96.4 fl (80.0-96.0); PLATELET COUNT, AUTOMATED 273 10^3/uL (150-450); RED BLOOD COUNT 3.86 10^6/uL (4.00-5.40)
[2022-07-04 12:24] LABS: ALBUMIN 3.7 G/DL (3.2-5.2); BILIRUBIN,TOTAL 1.2 MG/DL (0.3-1.2); CALCIUM LEVEL 10.2 MG/DL (8.3-10.6); CREATININE FOR GFR 1.02 MG/DL (0.55-1.30); GLOMERULAR FILTRATION RATE 58.1 (>45); POTASSIUM SERUM 4.7 MMOL/L (3.5-5.1); TOTAL PROTEIN 7.3 G/DL (5.7-8.2)
== END ==
LOC: M LAB 11:23
PROVIDERS: ATTEND Urology
DX: N28.9 Disorder of kidney and ureter, unspecified (principal)

== ENCOUNTER → 2022-07-09 | Outpatient (CLI) | payer MEDICARE, BC, OTHER ==
[~2022-07-09] MED LIST changes: +SEMA0.257 SQ
== END ==
LOC: M LABSMTC 11:40
PROVIDERS: ATTEND Anesthesiology
DX: Z01.812 Encounter for preprocedural laboratory examination (principal); Z20.822 Contact with and (suspected) exposure to COVID-19

== ENCOUNTER 2022-07-14 11:51 | Day surgery (SDC) | payer MEDICARE, BC, OTHER ==
[~2022-07-14] VITALS: Ht 165.1 cm; Wt 92.1 kg
[~2022-07-14 11:51] MED LIST changes: +ceFAZolin SOD 2 GM in IV 1 EA IV ONE
[2022-07-14] MEDS ORDERED: LR 1,000 ML IV SCH ×2 (12:55→16:30)
[2022-07-14] MEDS ORDERED: propofoL 200 MG/20 ML VIAL As Ordered ONE (13:35)
[2022-07-14] MEDS ORDERED: ONDANSETRON 4MG 2ML VIAL As Ordered ONE (13:35)
[2022-07-14] MEDS ORDERED: ROCURONIUM BROMIDE 50MG/5ML VIAL As Ordered ONE (13:35)
[2022-07-14] MEDS ORDERED: LIDOCAINE 2% 100MG/5ML SDV (FOR ANES.) As Ordered ONE (13:35)
[2022-07-14] MEDS ORDERED: SUGAMMADEX SODIUM 500 MG/5 ML VIAL (BRIDION) As Ordered ONE (13:35)
[2022-07-14] MEDS ORDERED: MIDAZOLAM INJ 2MG/2ML VIAL As Ordered ONE (13:39)
[2022-07-14] MEDS ORDERED: fentaNYL 100 MCG/2 ML INJECTION As Ordered ONE (13:39)
[2022-07-14] MEDS: ISOVUE-300 61% 100ML VIAL As Ordered ONE ×2 (14:32→15:44)
[2022-07-14] MEDS ORDERED: ACETAMINOPHEN 1000MG 100ML IV BAG As Ordered ONE (15:08)
[2022-07-14] MEDS ORDERED: oxyCODONE 5MG TAB PO PRN (16:30)
[2022-07-14] MEDS ORDERED: ONDANSETRON 4MG 2ML VIAL IV PRN (16:30)
[2022-07-14] MEDS ORDERED: fentaNYL 100 MCG/2 ML INJECTION IV PRN (16:30)
[2022-07-14] MEDS ORDERED: OXYB5TAB10 PO (16:35)
[2022-07-14] MEDS ORDERED: PYRI1TAB5 PO (16:35)
[2022-07-14] MEDS ORDERED: MACR100C43 PO (16:35)
[2022-07-14] MEDS ORDERED: HYDR-3713 PO (16:35)
[2022-07-14] MEDS: HYDROMORPHONE HCL 0.5 MG/ 0.5 ML SYRINGE IV PRN ×2 (16:54→16:59)
[2022-07-14 18:10] VITALS: BP 140/72
== END 2022-07-14 18:18 | disposition home or self-care (01) ==
LOC: M SDC 11:51
PROVIDERS: ATTEND Urology
DX: N20.0 Calculus of kidney (principal); N28.89 Other specified disorders of kidney and ureter; N11.9 Chronic tubulo-interstitial nephritis, unspecified; N28.1 Cyst of kidney, acquired; I48.91 Unspecified atrial fibrillation; I10 Essential (primary) hypertension; E78.00 Pure hypercholesterolemia, unspecified; E11.9 Type 2 diabetes mellitus without complications; M10.9 Gout, unspecified; Z87.440 Personal history of urinary (tract) infections; Z86.73 Personal history of transient ischemic attack (TIA), and cerebral infarction without residual deficits; Z88.2 Allergy status to sulfonamides; Z88.1 Allergy status to other antibiotic agents; Z79.899 Other long term (current) drug therapy; Z79.01 Long term (current) use of anticoagulants; Z79.84 Long term (current) use of oral hypoglycemic drugs
CPT/HCPCS: 52356; 74420; 82365; C1769; C2617; J0131; J0690; J1100; J1170; J2250; J2405; J3010; Q9967

== ENCOUNTER → 2022-08-01 | Outpatient (CLI) | payer MEDICARE, BC, OTHER ==
[~2022-08-01] MED LIST changes: +HYDR-3713 PO; +MACR100C43 PO; +OXYB5TAB10 PO; +PYRI1TAB5 PO; -ceFAZolin SOD 2 GM in IV 1 EA IV ONE
== END ==
LOC: M LAB 11:47
PROVIDERS: ATTEND Urology
DX: N20.0 Calculus of kidney (principal)

== ENCOUNTER → 2022-08-06 | Outpatient (CLI) | payer MEDICARE, BC, OTHER ==
[~2022-08-06] MED LIST changes: +CINA30TA5 PO; +CIPR250T3 PO; +OZEM2INJ
== END ==
LOC: M LABSMTC 09:34
PROVIDERS: ATTEND Anesthesiology
DX: Z01.818 Encounter for other preprocedural examination (principal); Z11.52 Encounter for screening for COVID-19

== ENCOUNTER → 2022-08-06 | Outpatient (REF) | payer MEDICARE, BC, OTHER ==
[2022-08-06 18:27] LABS: POTASSIUM SERUM 4.5 MMOL/L (3.5-5.1)
== END ==
LOC: M LAB REF 17:24
PROVIDERS: ATTEND Internal Medicine Nephrology
DX: N18.31 Chronic kidney disease, stage 3a (principal)

== ENCOUNTER 2022-08-11 10:03 | Day surgery (SDC) | payer MEDICARE, BC, OTHER ==
[~2022-08-11] VITALS: Ht 165.1 cm; Wt 93.0 kg
[~2022-08-11 10:03] MED LIST changes: +ceFAZolin SOD 2 GM in IV 1 EA IV ONE
[2022-08-11] MEDS ORDERED: LR 1,000 ML IV SCH ×2 (10:25→13:35)
[2022-08-11] MEDS ORDERED: fentaNYL 100 MCG/2 ML INJECTION As Ordered ONE (10:52)
[2022-08-11] MEDS ORDERED: ONDANSETRON 4MG 2ML VIAL As Ordered ONE (10:52)
[2022-08-11] MEDS ORDERED: MIDAZOLAM INJ 2MG/2ML VIAL As Ordered ONE (10:52)
[2022-08-11] MEDS ORDERED: LIDOCAINE 2% 100MG/5ML SDV (FOR ANES.) As Ordered ONE (10:52)
[2022-08-11] MEDS ORDERED: propofoL 200 MG/20 ML VIAL As Ordered ONE (10:52)
[2022-08-11] MEDS ORDERED: ISOVUE-300 61% 100ML VIAL As Ordered ONE (11:47)
[2022-08-11] MEDS ORDERED: KETOROLAC 60MG 2ML VIAL As Ordered ONE (13:22)
[2022-08-11] MEDS ORDERED: MACR100C43 PO (13:29)
[2022-08-11] MEDS ORDERED: oxyCODONE 5MG TAB PO PRN (13:35)
[2022-08-11] MEDS ORDERED: ONDANSETRON 4MG 2ML VIAL IV PRN (13:35)
[2022-08-11] MEDS ORDERED: fentaNYL 100 MCG/2 ML INJECTION IV PRN (13:35)
[2022-08-11 14:37] VITALS: BP 136/69
[2022-08-15 23:07] LABS: CA Oxalate Dihy 20 % (.); Ca Ox Monohydrate 80 % (.)
== END 2022-08-11 15:01 | disposition home or self-care (01) ==
LOC: M SDC 10:03
PROVIDERS: ATTEND Urology
DX: N20.0 Calculus of kidney (principal); I48.91 Unspecified atrial fibrillation; I10 Essential (primary) hypertension; E78.00 Pure hypercholesterolemia, unspecified; N11.9 Chronic tubulo-interstitial nephritis, unspecified; N28.1 Cyst of kidney, acquired; G43.909 Migraine, unspecified, not intractable, without status migrainosus; E21.3 Hyperparathyroidism, unspecified; Z87.440 Personal history of urinary (tract) infections; Z87.891 Personal history of nicotine dependence; Z88.2 Allergy status to sulfonamides; Z88.1 Allergy status to other antibiotic agents; Z79.899 Other long term (current) drug therapy; Z79.2 Long term (current) use of antibiotics; Z79.01 Long term (current) use of anticoagulants; Z79.891 Long term (current) use of opiate analgesic
CPT/HCPCS: 52353; 76000; 82365; C1769; C1894; C2617; J0690; J1100; J1885; J2250; J2405; J3010; Q9967

== ENCOUNTER → 2022-08-26 | Outpatient (REF) | payer MEDICARE, OTHER ==
[~2022-08-26] MED LIST changes: -ceFAZolin SOD 2 GM in IV 1 EA IV ONE
[2022-08-26 17:26] LABS: ALBUMIN 3.7 G/DL (3.2-5.2); ALKALINE PHOSPHATASE 103 U/L (46-116); ALT/SGPT 74 U/L (7.0-40); AST/SGOT 32 U/L (<34); BLOOD UREA NITROGEN 19 MG/DL (9-23); CALCIUM LEVEL 10.2 MG/DL (8.3-10.6); CARBON DIOXIDE LEVEL 28 MMOL/L (20-31); CHLORIDE LEVEL 107 MMOL/L (98-107); CHOLESTEROL LEVEL 258 MG/DL (<200); CHOLESTEROL RISK RATIO 6.32 (<5); CREATININE FOR GFR 0.97 MG/DL (0.55-1.30); GLOMERULAR FILTRATION RATE > 60.0 (>45); GLUCOSE, FASTING 96 MG/DL (74-106); HDL CHOLESTEROL 40.8 MG/DL (>40); LDL CHOLESTEROL 162.8 MG/DL (<100); NON-HDL-C 217.2 MG/DL; POTASSIUM SERUM 4.6 MMOL/L (3.5-5.1); SODIUM LEVEL 140 MMOL/L (136-145); TOTAL PROTEIN 6.9 G/DL (5.7-8.2); TRIGLYCERIDES LEVEL 272 MG/DL (<150)
[2022-08-26 17:27] LABS: URIC ACID 5.4 MG/DL (3.1-7.8)
== END ==
LOC: M SFHCCLAY 11:01
PROVIDERS: ATTEND Nurse Practitioner Family
DX: E78.5 Hyperlipidemia, unspecified (principal); N18.31 Chronic kidney disease, stage 3a; M1A.9XX0 Chronic gout, unspecified, without tophus (tophi); E11.9 Type 2 diabetes mellitus without complications

== ENCOUNTER → 2022-11-10 | Outpatient (CLI) | payer MEDICARE, BC, OTHER | LOC: M RAD 07:53 | PROVIDERS: ATTEND Urology | DX: Z96.0 Presence of urogenital implants (principal) ==

== ENCOUNTER → 2022-12-03 | Outpatient (REF) | payer MEDICARE, OTHER ==
[2022-12-03 17:10] LABS: HEMOGLOBIN 12.5 g/dl (12.0-15.5); MEAN CORPUSCULAR HGB CONC 32.1 g/dl (32.0-36.5); MEAN CORPUSCULAR VOLUME 96.8 fl (80.0-96.0); PLATELET COUNT, AUTOMATED 230 10^3/uL (150-450); RED BLOOD COUNT 4.03 10^6/uL (4.00-5.40); WHITE BLOOD COUNT 6.3 10^3/uL (4.0-10.0)
[2022-12-03 17:29] LABS: INR 0.92; PROTHROMBIN TIME 12.6 SECONDS (12.5-14.5)
[2022-12-03 17:40] LABS: BILIRUBIN,TOTAL 0.9 MG/DL (0.3-1.2); CREATININE FOR GFR 1.01 MG/DL (0.55-1.30); GLOMERULAR FILTRATION RATE 58.7 (>45)
== END ==
LOC: M SFHCCLAY 09:16
PROVIDERS: ATTEND Urology
DX: N20.0 Calculus of kidney (principal); E11.9 Type 2 diabetes mellitus without complications; N18.31 Chronic kidney disease, stage 3a

== ENCOUNTER 2022-12-11 08:50 | Day surgery (SDC) | payer MEDICARE, BC, OTHER ==
[~2022-12-11] VITALS: Ht 165.1 cm; Wt 92.5 kg
[~2022-12-11 08:50] MED LIST changes: +ceFAZolin SOD 2 GM in IV 1 EA IV ONE
[2022-12-11] MEDS ORDERED: LR 1,000 ML IV SCH (10:00)
[2022-12-11] MEDS ORDERED: SEMA0.257 SC (10:30)
[2022-12-11] MEDS ORDERED: ONDANSETRON 4MG 2ML VIAL As Ordered ONE (12:01)
[2022-12-11] MEDS ORDERED: LIDOCAINE 2% 100MG/5ML SDV (FOR ANES.) As Ordered ONE (12:01)
[2022-12-11] MEDS ORDERED: propofoL 200 MG/20 ML VIAL As Ordered ONE (12:01)
[2022-12-11] MEDS ORDERED: fentaNYL 100 MCG/2 ML INJECTION As Ordered ONE (12:01)
[2022-12-11] MEDS ORDERED: MIDAZOLAM INJ 2MG/2ML VIAL As Ordered ONE (12:01)
[2022-12-11 13:46] VITALS: BP 138/82; TEMP 97.4; O2SAT 100
== END 2022-12-11 13:52 | disposition home or self-care (01) ==
LOC: M SDC 08:50
PROVIDERS: ATTEND Urology
DX: N20.0 Calculus of kidney (principal); K21.9 Gastro-esophageal reflux disease without esophagitis; I48.11 Longstanding persistent atrial fibrillation; E11.9 Type 2 diabetes mellitus without complications; E21.3 Hyperparathyroidism, unspecified; H81.4 Vertigo of central origin; M25.512 Pain in left shoulder; N28.1 Cyst of kidney, acquired; Z87.891 Personal history of nicotine dependence; N18.31 Chronic kidney disease, stage 3a; E78.5 Hyperlipidemia, unspecified; R91.1 Solitary pulmonary nodule; K76.0 Fatty (change of) liver, not elsewhere classified; Z91.018 Allergy to other foods; Z88.1 Allergy status to other antibiotic agents; Z88.2 Allergy status to sulfonamides; Z79.01 Long term (current) use of anticoagulants; Z79.899 Other long term (current) drug therapy
CPT/HCPCS: 50590; 74018; J0690; J2250; J2405; J3010

== ENCOUNTER → 2022-12-24 | Outpatient (CLI) | payer MEDICARE, BC, OTHER ==
[~2022-12-24] MED LIST changes: +SEMA0.257 SC; -ceFAZolin SOD 2 GM in IV 1 EA IV ONE
== END ==
LOC: M RAD 09:03
PROVIDERS: ATTEND Nurse Practitioner Family
DX: K76.0 Fatty (change of) liver, not elsewhere classified (principal)

== ENCOUNTER → 2023-01-01 | Outpatient (CLI) | payer MEDICARE, BC, OTHER | LOC: M PLAIMG 08:29 | PROVIDERS: ATTEND Specialist | DX: N20.0 Calculus of kidney (principal) ==

== ENCOUNTER → 2023-01-05 | Outpatient (REF) | payer MEDICARE, OTHER | LOC: M SMT 13:07 | PROVIDERS: ATTEND Physician Assistant | DX: N20.0 Calculus of kidney (principal) ==

== ENCOUNTER → 2023-03-23 | Outpatient (CLI) | payer MEDICARE, BC, OTHER ==
[~2023-03-23] MED LIST changes: -OXYB5TAB10 PO; +OXYB5TAB11 PO
== END ==
LOC: M WHC 09:24
PROVIDERS: ATTEND Family Medicine
DX: Z12.31 Encounter for screening mammogram for malignant neoplasm of breast (principal)

== ENCOUNTER → 2023-04-01 | Outpatient (CLI) | payer MEDICARE, BC, OTHER | LOC: M RAD 14:52 | PROVIDERS: ATTEND Physician Assistant | DX: N20.0 Calculus of kidney (principal) ==

== ENCOUNTER → 2023-04-20 | Outpatient (CLI) | payer MEDICARE, BC, OTHER ==
[~2023-04-20] MED LIST changes: +NITR100C2 PO
[2023-04-20 12:03] LABS: APPEARANCE, URINE HAZY (CLEAR); BACTERIA, URINE AUTO 1+ (NEGATIVE); BILIRUBIN, URINE AUTO NEGATIVE (NEGATIVE); BLOOD, URINE BLOOD NEGATIVE (NEGATIVE); COLOR, URINE YELLOW (YELLOW); GLUCOSE, URINE (UA) AUTO NEGATIVE (NEGATIVE); KETONE, URINE AUTO NEGATIVE (NEGATIVE); LEUKOCYTE ESTERASE, URINE AUTO 3+ (NEGATIVE); MUCUS, URINE SMALL (NEGATIVE); NITRITE, URINE AUTO NEGATIVE (NEGATIVE); PROTEIN, URINE AUTO NEGATIVE (NEGATIVE); RBC, URINE AUTO 3 /HPF (0-3); SPECIFIC GRAVITY URINE AUTO 1.017 (1.002-1.035); SQUAMOUS EPITHELIAL CELL UR AU 2 /HPF (0-6); UROBILINOGEN, URINE AUTO 0.2 mg/dL (0.0-2.0); WBC, URINE AUTO 30 /HPF (0-3)
[2023-04-20 12:07] LABS: HEMATOCRIT 38.2 % (36.0-47.0); HEMOGLOBIN 12.4 g/dl (12.0-15.5); MEAN CORPUSCULAR HEMOGLOBIN 31.3 pg (27.0-33.0); MEAN CORPUSCULAR HGB CONC 32.5 g/dl (32.0-36.5); MEAN CORPUSCULAR VOLUME 96.5 fl (80.0-96.0); PLATELET COUNT, AUTOMATED 227 10^3/uL (150-450); RED BLOOD COUNT 3.96 10^6/uL (4.00-5.40); WHITE BLOOD COUNT 6.7 10^3/uL (4.0-10.0)
[2023-04-20 12:32] LABS: CALCIUM LEVEL 9.9 MG/DL (8.3-10.6); CREATININE FOR GFR 1.05 MG/DL (0.55-1.30)
== END ==
LOC: M LAB 10:55
PROVIDERS: ATTEND Physician Assistant
DX: Z01.818 Encounter for other preprocedural examination (principal); N20.0 Calculus of kidney; Z79.899 Other long term (current) drug therapy; Z79.01 Long term (current) use of anticoagulants

== ENCOUNTER → 2023-05-11 | Outpatient (CLI) | payer MEDICARE, BC, OTHER | LOC: M EKG 16:31 | PROVIDERS: ATTEND Anesthesiology | DX: I48.91 Unspecified atrial fibrillation (principal); I10 Essential (primary) hypertension ==

== ENCOUNTER → 2023-05-21 | Outpatient (REF) | payer MEDICARE, BC ==
[~2023-05-21] MED LIST changes: +POTA10808 PO
[2023-05-21 18:19] LABS: APPEARANCE, URINE HAZY (CLEAR); BACTERIA, URINE AUTO 1+ (NEGATIVE); BILIRUBIN, URINE AUTO NEGATIVE (NEGATIVE); BLOOD, URINE BLOOD NEGATIVE (NEGATIVE); COLOR, URINE YELLOW (YELLOW); GLUCOSE, URINE (UA) AUTO NEGATIVE (NEGATIVE); KETONE, URINE AUTO NEGATIVE (NEGATIVE); LEUKOCYTE ESTERASE, URINE AUTO 2+ (NEGATIVE); MUCUS, URINE SMALL (NEGATIVE); NITRITE, URINE AUTO NEGATIVE (NEGATIVE); PROTEIN, URINE AUTO NEGATIVE (NEGATIVE); RBC, URINE AUTO 2 /HPF (0-3); SPECIFIC GRAVITY URINE AUTO 1.016 (1.002-1.035); SQUAMOUS EPITHELIAL CELL UR AU 6 /HPF (0-6); UROBILINOGEN, URINE AUTO 0.2 mg/dL (0.0-2.0); WBC, URINE AUTO 36 /HPF (0-3)
== END ==
LOC: M SMT 15:44
PROVIDERS: ATTEND Physician Assistant
DX: Z01.818 Encounter for other preprocedural examination (principal); Z79.899 Other long term (current) drug therapy

== ENCOUNTER 2023-05-28 08:34 | Day surgery (SDC) | payer MEDICARE, BC, OTHER ==
[~2023-05-28] VITALS: Ht 165.1 cm; Wt 93.4 kg
[~2023-05-28 08:34] MED LIST changes: +UNRESOLVED CLARIFICATION ENTRY XX SCH; +ceFAZolin SOD 2 GM in IV 1 EA IV ONE
[2023-05-28] MEDS ORDERED: LR 1,000 ML IV SCH (09:35)
[2023-05-28] MEDS ORDERED: ONDANSETRON 4MG 2ML VIAL As Ordered ONE (09:37)
[2023-05-28] MEDS ORDERED: propofoL 200 MG/20 ML VIAL As Ordered ONE ×2 (09:37→09:38)
[2023-05-28] MEDS ORDERED: ACETAMINOPHEN 1000MG 100ML IV BAG As Ordered ONE (09:37)
[2023-05-28] MEDS ORDERED: fentaNYL 100 MCG/2 ML INJECTION As Ordered ONE (09:37)
[2023-05-28] MEDS ORDERED: LIDOCAINE 2% 100MG/5ML SDV (FOR ANES.) As Ordered ONE (09:37)
[2023-05-28] MEDS ORDERED: MIDAZOLAM INJ 2MG/2ML VIAL As Ordered ONE (09:38)
[2023-05-28] MEDS ORDERED: ceFAZolin SOD 2 GM in IV 1 EA IV ONE (09:45)
[2023-05-28 12:53] VITALS: BP 135/79; TEMP 98.6; O2SAT 95
== END 2023-05-28 12:53 | disposition home or self-care (01) ==
LOC: M SDC 08:34
PROVIDERS: ATTEND Urology
DX: N20.0 Calculus of kidney (principal); I48.91 Unspecified atrial fibrillation; I10 Essential (primary) hypertension; E78.00 Pure hypercholesterolemia, unspecified; R73.03 Prediabetes; M10.9 Gout, unspecified; Z87.891 Personal history of nicotine dependence; Z88.1 Allergy status to other antibiotic agents; Z88.2 Allergy status to sulfonamides; Z91.018 Allergy to other foods; Z79.899 Other long term (current) drug therapy; Z79.01 Long term (current) use of anticoagulants; Z79.85 Long-term (current) use of injectable non-insulin antidiabetic drugs; Z79.2 Long term (current) use of antibiotics; Z87.440 Personal history of urinary (tract) infections
CPT/HCPCS: 50590; 74018; J0131; J2250; J2405; J3010

== ENCOUNTER → 2023-06-17 | Outpatient (CLI) | payer MEDICARE, BC, OTHER ==
[~2023-06-17] MED LIST changes: -UNRESOLVED CLARIFICATION ENTRY XX SCH; -ceFAZolin SOD 2 GM in IV 1 EA IV ONE
== END ==
LOC: M RAD 11:44
PROVIDERS: ATTEND Physician Assistant
DX: N20.0 Calculus of kidney (principal)

== ENCOUNTER → 2023-06-24 | Outpatient (REF) | payer MEDICARE, OTHER | LOC: M SMT 13:07 | PROVIDERS: ATTEND Physician Assistant | DX: N20.0 Calculus of kidney (principal) ==

== ENCOUNTER → 2023-07-08 | Outpatient (CLI) | payer MEDICARE, BC, OTHER | LOC: M PLAIMG 09:44 | PROVIDERS: ATTEND Physician Assistant | DX: N20.0 Calculus of kidney (principal) ==

== ENCOUNTER → 2023-07-15 | Outpatient (CLI) | payer MEDICARE, BC, OTHER ==
[~2023-07-15] MED LIST changes: -OXYB5TAB11 PO; +OXYB5TAB14 PO
== END ==
LOC: M RAD 13:56
PROVIDERS: ATTEND Internal Medicine Pulmonary Disease
DX: R91.8 Other nonspecific abnormal finding of lung field (principal)

== ENCOUNTER → 2023-08-27 | Outpatient (REF) | payer MEDICARE, OTHER ==
[2023-08-27 19:04] LABS: BASO # 0.1 10^3/uL (0.0-0.2); BASO % 1.2 % (0.0-1.0); EOS # 0.2 10^3/uL (0.0-0.5); EOS % 2.9 % (0.0-3.0); HEMATOCRIT 40.1 % (36.0-47.0); HEMOGLOBIN 12.9 g/dl (12.0-15.5); LYMPH # 2.4 10^3/uL (1.5-5.0); LYMPH % 31.3 % (24.0-44.0); MEAN CORPUSCULAR HEMOGLOBIN 31.1 pg (27.0-33.0); MEAN CORPUSCULAR HGB CONC 32.2 g/dl (32.0-36.5); MEAN CORPUSCULAR VOLUME 96.6 fl (80.0-96.0); MONO # 0.5 10^3/uL (0.0-0.8); MONO % 5.9 % (2.0-8.0); NEUTROPHILS # 4.4 10^3/uL (1.5-8.5); NEUTROPHILS % 58.4 % (36.0-66.0); PLATELET COUNT, AUTOMATED 237 10^3/uL (150-450); RED BLOOD COUNT 4.15 10^6/uL (4.00-5.40); WHITE BLOOD COUNT 7.6 10^3/uL (4.0-10.0)
[2023-08-27 19:27] LABS: HEMOGLOBIN A1c 6.1 % (4.0-6.0)
[2023-08-27 19:32] LABS: URIC ACID 7.4 MG/DL (3.1-7.8)
[2023-08-27 19:35] LABS: CHOLESTEROL LEVEL 229 MG/DL (<200); CHOLESTEROL RISK RATIO 4.94 (<5); HDL CHOLESTEROL 46.3 MG/DL (>40); LDL CHOLESTEROL 131.3 MG/DL (<100); NON-HDL-C 182.7 MG/DL; TRIGLYCERIDES LEVEL 257 MG/DL (<150)
[2023-08-27 19:36] LABS: FREE T4 0.92 NG/DL (0.89-1.76); THYROID STIMULATING HORMONE 1.394 uIU/ML (0.55-4.78)
[2023-08-28 11:05] LABS: CALCIUM LEVEL 10.3 MG/DL (8.3-10.6)
[2023-08-28 11:13] LABS: ALKALINE PHOSPHATASE 99 U/L (46-116); ALT/SGPT 55 U/L (7.0-40); AST/SGOT 26 U/L (<34); BILIRUBIN,TOTAL 1.1 MG/DL (0.3-1.2); BLOOD UREA NITROGEN 27 MG/DL (9-23); CARBON DIOXIDE LEVEL 27 MMOL/L (20-31); CHLORIDE LEVEL 107 MMOL/L (98-107); CREATININE FOR GFR 0.98 MG/DL (0.55-1.30); GLOMERULAR FILTRATION RATE > 60.0 (>45); GLUCOSE, FASTING 107 MG/DL (74-106); POTASSIUM SERUM 5.2 MMOL/L (3.5-5.1); SODIUM LEVEL 138 MMOL/L (136-145); TOTAL PROTEIN 7.5 G/DL (5.7-8.2)
== END ==
LOC: M SFHCCLAY 11:30
PROVIDERS: ATTEND Nurse Practitioner Family
DX: Z00.00 Encounter for general adult medical examination without abnormal findings (principal); R91.1 Solitary pulmonary nodule; I48.11 Longstanding persistent atrial fibrillation; E78.5 Hyperlipidemia, unspecified; G43.009 Migraine without aura, not intractable, without status migrainosus; N18.31 Chronic kidney disease, stage 3a; M1A.9XX0 Chronic gout, unspecified, without tophus (tophi); E11.9 Type 2 diabetes mellitus without complications; E21.0 Primary hyperparathyroidism

== ENCOUNTER → 2023-10-22 | Outpatient (REF) | payer MEDICARE, BC ==
[2023-10-22 19:10] LABS: ALBUMIN 3.9 G/DL (3.2-5.2); BILIRUBIN,TOTAL 1.3 MG/DL (0.3-1.2); CALCIUM LEVEL 10.3 MG/DL (8.3-10.6); CREATININE FOR GFR 1.18 MG/DL (0.55-1.30); GLOMERULAR FILTRATION RATE 48.9 (>45); POTASSIUM SERUM 4.8 MMOL/L (3.5-5.1); TOTAL PROTEIN 7.2 G/DL (5.7-8.2)
== END ==
LOC: M SFHCCLAY 14:33
PROVIDERS: ATTEND Nurse Practitioner Family
DX: N18.31 Chronic kidney disease, stage 3a (principal)

== ENCOUNTER → 2023-12-31 | Outpatient (CLI) | payer MEDICARE, BC | LOC: M RAD 07:22 | PROVIDERS: ATTEND Physician Assistant | DX: N20.0 Calculus of kidney (principal) ==

== ENCOUNTER → 2024-02-16 | Outpatient (REF) | payer MEDICARE, BC ==
[2024-02-16 19:26] LABS: ALBUMIN 3.6 G/DL (3.2-5.2); BILIRUBIN,TOTAL 0.9 MG/DL (0.3-1.2); CALCIUM LEVEL 10.4 MG/DL (8.3-10.6); CREATININE FOR GFR 1.11 MG/DL (0.55-1.30); GLOMERULAR FILTRATION RATE 52.4 (>45); POTASSIUM SERUM 4.2 MMOL/L (3.5-5.1); TOTAL PROTEIN 6.8 G/DL (5.7-8.2)
[2024-02-16 19:29] LABS: BASO # 0.1 10^3/uL (0.0-0.2); BASO % 0.8 % (0.0-1.0); EOS # 0.2 10^3/uL (0.0-0.5); EOS % 2.7 % (0.0-3.0); HEMOGLOBIN 11.8 g/dl (12.0-15.5); LYMPH # 2.4 10^3/uL (1.5-5.0); LYMPH % 31.3 % (24.0-44.0); MEAN CORPUSCULAR HEMOGLOBIN 31.1 pg (27.0-33.0); MEAN CORPUSCULAR HGB CONC 32.8 g/dl (32.0-36.5); MONO # 0.5 10^3/uL (0.0-0.8); NEUTROPHILS # 4.4 10^3/uL (1.5-8.5); NEUTROPHILS % 58.7 % (36.0-66.0); PLATELET COUNT, AUTOMATED 240 10^3/uL (150-450); RED BLOOD COUNT 3.79 10^6/uL (4.00-5.40); WHITE BLOOD COUNT 7.5 10^3/uL (4.0-10.0)
== END ==
LOC: M SFHCCLAY 13:32
PROVIDERS: ATTEND Nurse Practitioner Family
DX: E11.9 Type 2 diabetes mellitus without complications (principal); N18.31 Chronic kidney disease, stage 3a; K92.1 Melena

== ENCOUNTER → 2024-02-29 | Outpatient (CLI) | payer MEDICARE, BC | LOC: M RAD 06:40 | PROVIDERS: ATTEND Internal Medicine Pulmonary Disease | DX: R91.8 Other nonspecific abnormal finding of lung field (principal) ==

== ENCOUNTER → 2024-05-18 | Outpatient (REF) | payer MEDICARE, BC ==
[~2024-05-18] MED LIST changes: -POTA10808 PO; +POTA10809 PO
[2024-05-18 17:19] LABS: ALBUMIN 3.8 G/DL (3.2-5.2); BILIRUBIN,TOTAL 0.9 MG/DL (0.3-1.2); CALCIUM LEVEL 10.9 MG/DL (8.3-10.6); CHOLESTEROL RISK RATIO 6.04 (<5); CREATININE FOR GFR 1.06 MG/DL (0.55-1.30); GLOMERULAR FILTRATION RATE 55.2 (>45); HDL CHOLESTEROL 37.7 MG/DL (>40); LDL CHOLESTEROL 147.7 MG/DL (<100); NON-HDL-C 190.3 MG/DL; POTASSIUM SERUM 4.8 MMOL/L (3.5-5.1); TOTAL PROTEIN 7.7 G/DL (5.7-8.2)
[2024-05-18 17:22] LABS: THYROID STIMULATING HORMONE 1.408 uIU/ML (0.55-4.78)
[2024-05-18 17:23] LABS: FREE T4 1.02 NG/DL (0.89-1.76)
[2024-05-18 17:36] LABS: HEMOGLOBIN A1c 6.2 % (4.0-6.0)
== END ==
LOC: M SFHCCLAY 10:11
PROVIDERS: ATTEND Nurse Practitioner Family
DX: E11.9 Type 2 diabetes mellitus without complications (principal); N18.31 Chronic kidney disease, stage 3a; R91.1 Solitary pulmonary nodule; E78.5 Hyperlipidemia, unspecified

== ENCOUNTER → 2024-06-16 | Outpatient (CLI) | payer MEDICARE, BC | LOC: M WHC 10:00 | PROVIDERS: ATTEND Nurse Practitioner Family | DX: Z12.31 Encounter for screening mammogram for malignant neoplasm of breast (principal) ==

== ENCOUNTER → 2025-03-22 | Outpatient (CLI) | payer MEDICARE, BC ==
[~2025-03-22] MED LIST changes: -PRAV40TA2 PO; +PRAV40TA85 PO
== END ==
LOC: M PLAIMG 12:19
PROVIDERS: ATTEND Internal Medicine Pulmonary Disease
DX: R91.8 Other nonspecific abnormal finding of lung field (principal); K76.0 Fatty (change of) liver, not elsewhere classified; K80.20 Calculus of gallbladder without cholecystitis without obstruction